=== PATIENT | female | born 1995 | race Caucasian/White ===

== ENCOUNTER → 2021-08-22 14:27 | Outpatient (CLI) | payer OTHER, SELFPAY ==
[2021-08-22 15:22] LABS: Absolute Lymphocyte Count 2.41 X10^3/uL (0.83-4.51); Basophil# 0.04 X10^3/uL; Basophil% 0.4 % (0-1); Eosinophil# 0.07 X10^3/uL; Eosinophils% 0.8 % (0-5); Hemoglobin 13.9 g/dL (12.0-15.0); Lymphocyte # 2.41 X10^3/ul (0.83-4.51); Lymphocyte % 26.1 % (19-41); Mean Corp Hgb Conc 33.9 g/dL (32-36); Mean Corpuscular Hgb 30.5 pg (27.0-32.0); Mean Corpuscular Volume 89.9 fL (81-99); Mean Platelet Vol. 9.1 fl (6.2-12.0); Monocyte# 0.67 X10^3/uL; Monocyte% 7.3 % (0-10); NRBC Flagged by Analyzer 0 % (0-5); Neutrophil # 6.02 X10^3/uL (2.7-7.7); Neutrophil % 65.1 % (47-70); Platelet Count 308 K/mm3 (150-450); RBC Distribution Width CV 12.1 % (11.6-14.6); RBC Distribution Width SD 39.2 fl (35.1-43.9); Red Blood Count 4.56 M/mm3 (4.2-5.4); White Blood Count 9.2 K/mm3 (4.4-11.0)
[2021-08-25 09:30] LABS: HIV - WCH Non-Reactive (Nonreactive); Hepatitis B Surface Antigen Non-Reactive (Nonreactive); Hepatitis C Antibody Non-Reactive (Nonreactive); Syphilis Antibodies Non-reactive
[2021-08-26 00:07] LABS: Chlamydia By Nucleic Acid AMP Negative (Negative)
[2021-08-26 11:21] LABS: Gonococcus By Nucleic Acid AMP Negative (Negative)
[2021-08-28 21:45] LABS: HPV Reflexed? NOT INDICATED
== END ==
PROVIDERS: Visit Provider Obstetrics & Gynecology
DX: Z34.81 Encounter for supervision of other normal pregnancy, first trimester (principal); Z12.4 Encounter for screening for malignant neoplasm of cervix; Z11.3 Encounter for screening for infections with a predominantly sexual mode of transmission
CPT/HCPCS: 36415; 85025; 86703; 86762; 86780; 86803; 87086; 87088; 87340; 87491; 87591; 88175; G0145

== ENCOUNTER 2022-01-02 12:48 | Outpatient (CLI) | payer OTHER, SELFPAY ==
[2022-01-02 13:14] LABS: Hematocrit 35.8 % (37-47); Hemoglobin 12.5 g/dL (12.0-15.0); Mean Corp Hgb Conc 34.9 g/dL (32-36); Mean Corpuscular Hgb 32.3 pg (27.0-32.0); Mean Corpuscular Volume 92.5 fL (81-99); Mean Platelet Vol. 9.7 fl (6.2-12.0); Platelet Count 219 K/mm3 (150-450); RBC Distribution Width CV 12.6 % (11.6-14.6); RBC Distribution Width SD 42.1 fl (35.1-43.9); Red Blood Count 3.87 M/mm3 (4.2-5.4); White Blood Count 11.1 K/mm3 (4.4-11.0)
[2022-01-02 13:34] LABS: Glucose Challenge Gest 1H 50g 193 mg/dL (70-140)
== END 2022-01-02 23:59 | disposition home or self-care (01) ==
LOC: WOBLAB 12:49
PROVIDERS: Visit Provider Obstetrics & Gynecology
DX: Z34.82 Encounter for supervision of other normal pregnancy, second trimester (principal)
CPT/HCPCS: 36415; 82950; 85027; 86850

== ENCOUNTER 2022-01-09 11:17 | Outpatient (CLI) | payer OTHER, MEDICAID, SELFPAY ==
[2022-01-09 13:04] LABS: Glucose GTT-Gestation. Fasting 81 mg/dL (<105)
== END 2022-01-09 23:59 | disposition home or self-care (01) ==
LOC: WOBLAB 11:19
PROVIDERS: Visit Provider Obstetrics & Gynecology
DX: Z34.82 Encounter for supervision of other normal pregnancy, second trimester (principal)
CPT/HCPCS: 36415; 82951; 82952

== ENCOUNTER 2022-01-15 08:44 | Outpatient (CLI) | payer OTHER, MEDICAID, SELFPAY ==
[2022-01-15 09:32] LABS: Glucose GTT-Gestation. Fasting 89 mg/dL (<105)
[2022-01-15 11:33] LABS: Glucose GTT-Gestational 1 Hr 226 mg/dL (<190)
[2022-01-15 11:33] LABS: Glucose GTT-Gestational 2 Hr 250 mg/dL (<165)
[2022-01-15 13:26] LABS: Glucose GTT-Gestational 3 Hr 164 L (<145)
== END 2022-01-15 23:59 | disposition home or self-care (01) ==
LOC: WOBLAB 08:46
PROVIDERS: Visit Provider Obstetrics & Gynecology
DX: Z34.82 Encounter for supervision of other normal pregnancy, second trimester (principal)
CPT/HCPCS: 36415; 82951; 82952

== ENCOUNTER 2022-02-03 08:30 | Outpatient (CLI) | payer OTHER, MEDICAID, SELFPAY ==
[2022-02-03 08:53] VITALS: PULSE 123; O2SAT 98
[2022-02-03 08:58] VITALS: PULSE 118; O2SAT 97
[2022-02-03 09:03] VITALS: BP 108/66; PULSE 117; TEMP 37.1
[2022-02-03 09:05] VITALS: BMI 41.9
--- NOTE | 2022-02-03 18:59 | OB.TRI.NOTE ---
HPI - General HPI Narrative ZACH CONTE, is a 26 F who presents with decreased movement PFSH PFSH Home Medications Vitamin 1 tab PO/SL DAILY 02/03/22 [History Last Taken 12/09/21 08:00] Allergy/AdvReac Type Severity Reaction Status Date / Time No Known Allergies Allergy Verified 02/03/22 09:14 NST FHR Rate Baby A Baseline: 130 Variability:: Moderate Accelerations:: 15 x 15 and 10 x 10 Decelerations:: None Uterine Activity:: quiet Assessment & Plan (1) : PLAN: Patient with decreased movement. NST reactive. Reassuring. Okay to discharge home and follow-up schedule appointments
== END 2022-02-03 10:50 | disposition home or self-care (01) ==
LOC: WPOUT 08:45 → WP 08:46
PROVIDERS: PCP Family Medicine; Referring Provider Obstetrics & Gynecology; Visit Provider Obstetrics & Gynecology
DX: O36.8190 Decreased fetal movements, unspecified trimester, not applicable or unspecified (principal); Z3A.00 Weeks of gestation of pregnancy not specified
CPT/HCPCS: 59025; 59050; 99218; G0378

== ENCOUNTER → 2022-02-20 | Outpatient (CLI) | payer OTHER, MEDICAID, SELFPAY ==
[2022-02-20 11:10] LABS: ALB/GLOB Ratio 0.6 RATIO (0.9-2.4); AST(SGOT) 67 U/L (15-37); Alanine Aminotransfer ALT/SGPT 32 U/L (13-56); Albumin, Serum 2.2 g/dL (3.2-5.0); Alkaline Phosphatase 188 U/L (45-117); Anion Gap 8 (5-15); BUN 9 mg/dL (7-18); BUN/Creat Ratio 12.6 RATIO (10-20); Chloride 110 mmol/L (98-107); Creatinine, Serum 0.72 mg/dL (0.55-1.02); EST Glomerular Filtration Rate 105 mL/min (>60); Est Glom Filt Rate - Afr Amer 127 mL/min (>60); Globulin 3.9 g/dL (2.2-4.2); Glucose 74 mg/dL (74-106); Potassium 4.1 mmol/L (3.5-5.1); Protein, Total 6.1 g/dL (6.4-8.2); Sodium Level 139 mmol/L (136-145)
[2022-02-20 11:19] LABS: Hematocrit 30.8 % (37-47); Hemoglobin 10.3 g/dL (12.0-15.0); Mean Corp Hgb Conc 33.4 g/dL (32-36); Mean Corpuscular Hgb 31.3 pg (27.0-32.0); Mean Corpuscular Volume 93.6 fL (81-99); Mean Platelet Vol. 10.5 fl (6.2-12.0); Platelet Count 193 K/mm3 (150-450); RBC Distribution Width CV 12.9 % (11.6-14.6); RBC Distribution Width SD 43.4 fl (35.1-43.9); Red Blood Count 3.29 M/mm3 (4.2-5.4); White Blood Count 7.8 K/mm3 (4.4-11.0)
== END | disposition home or self-care (01) ==
PROVIDERS: PCP Family Medicine; Visit Provider Obstetrics & Gynecology
DX: Z34.83 Encounter for supervision of other normal pregnancy, third trimester (principal)
CPT/HCPCS: 36415; 80053; 85027; 86850

== ENCOUNTER → 2022-03-03 | Outpatient (CLI) | payer OTHER, MEDICAID, SELFPAY ==
[2022-03-03 14:53] LABS: Hematocrit 29.6 % (37-47); Hemoglobin 9.9 g/dL (12.0-15.0); Mean Corp Hgb Conc 33.4 g/dL (32-36); Mean Corpuscular Hgb 31.2 pg (27.0-32.0); Mean Corpuscular Volume 93.4 fL (81-99); Mean Platelet Vol. 10.3 fl (6.2-12.0); Platelet Count 217 K/mm3 (150-450); RBC Distribution Width CV 13.1 % (11.6-14.6); Red Blood Count 3.17 M/mm3 (4.2-5.4); White Blood Count 6.1 K/mm3 (4.4-11.0)
[2022-03-03 15:22] LABS: ALB/GLOB Ratio 0.6 RATIO (0.9-2.4); AST(SGOT) 64 U/L (15-37); Alanine Aminotransfer ALT/SGPT 30 U/L (13-56); Albumin, Serum 2.4 g/dL (3.2-5.0); Alkaline Phosphatase 246 U/L (45-117); Anion Gap 8 (5-15); BUN 9 mg/dL (7-18); BUN/Creat Ratio 10.3 RATIO (10-20); Chloride 108 mmol/L (98-107); Creatinine, Serum 0.88 mg/dL (0.55-1.02); EST Glomerular Filtration Rate 83 mL/min (>60); Est Glom Filt Rate - Afr Amer 101 mL/min (>60); Globulin 3.9 g/dL (2.2-4.2); Glucose 105 mg/dL (74-106); Protein, Total 6.3 g/dL (6.4-8.2); Sodium Level 138 mmol/L (136-145)
== END | disposition home or self-care (01) ==
PROVIDERS: PCP Family Medicine; Visit Provider Obstetrics & Gynecology
DX: L29.9 Pruritus, unspecified (principal)
CPT/HCPCS: 36415; 80053; 85027

== ENCOUNTER → 2022-03-13 | Outpatient (CLI) | payer OTHER, MEDICAID, SELFPAY ==
[2022-03-13 16:05] LABS: ALB/GLOB Ratio 0.6 RATIO (0.9-2.4); AST(SGOT) 54 U/L (15-37); Alanine Aminotransfer ALT/SGPT 19 U/L (13-56); Albumin, Serum 2.4 g/dL (3.2-5.0); Alkaline Phosphatase 240 U/L (45-117); Anion Gap 6 (5-15); BUN 10 mg/dL (7-18); Chloride 110 mmol/L (98-107); Creatinine, Serum 0.91 mg/dL (0.55-1.02); EST Glomerular Filtration Rate 80 mL/min (>60); Est Glom Filt Rate - Afr Amer 96 mL/min (>60); Globulin 4.1 g/dL (2.2-4.2); Glucose 110 mg/dL (74-106); Protein, Total 6.5 g/dL (6.4-8.2); Sodium Level 138 mmol/L (136-145)
== END | disposition home or self-care (01) ==
LOC: WOBLAB 15:25
PROVIDERS: PCP Family Medicine; Visit Provider Student in an Organized Health Care Education/Training Program
DX: Z34.83 Encounter for supervision of other normal pregnancy, third trimester (principal); Z36.85 Encounter for antenatal screening for Streptococcus B
CPT/HCPCS: 36415; 80053; 87081

== ENCOUNTER 2022-03-18 18:55 | Inpatient (IN) | payer OTHER, MEDICAID, SELFPAY ==
[2022-03-18 19:16] VITALS: BMI 42.6
[2022-03-18 19:47] VITALS: TEMP 36.6
[2022-03-18 19:48] VITALS: BP 129/61; PULSE 100; PULSE 101; O2SAT 100
[2022-03-18] MEDS: Betamethasone/Betamethasone 30 MG/5 ML Vial 12 MG IM (19:55)
[2022-03-18] MEDS: Lactated Ringers 1,000 ML 50 ML IV (19:58)
[2022-03-18 20:05] LABS: Absolute Lymphocyte Count 2.13 X10^3/uL (0.83-4.51); Absolute Neutrophil Count 4.1 X10^3/uL (2.0-7.7); Basophil# 0.04 X10^3/uL; Basophil% 0.6 % (0-1); Eosinophil# 0.32 X10^3/uL; Eosinophils% 4.4 % (0-5); Hematocrit 29.7 % (37-47); Hemoglobin 9.9 g/dL (12.0-15.0); Lymphocyte # 2.13 X10^3/ul (0.83-4.51); Lymphocyte % 29.3 % (19-41); Mean Corp Hgb Conc 33.3 g/dL (32-36); Mean Corpuscular Hgb 30.7 pg (27.0-32.0); Mean Corpuscular Volume 92.2 fL (81-99); Mean Platelet Vol. 10.8 fl (6.2-12.0); Monocyte# 0.61 X10^3/uL; Monocyte% 8.4 % (0-10); NRBC Flagged by Analyzer 0.3 % (0-5); Neutrophil % 56.5 % (47-70); Platelet Count 227 K/mm3 (150-450); RBC Distribution Width SD 42.8 fl (35.1-43.9); Red Blood Count 3.22 M/mm3 (4.2-5.4); White Blood Count 7.3 K/mm3 (4.4-11.0)
[2022-03-18] MEDS: miSOPROStol 25 MCG TABLET VAGINAL (20:16)
[2022-03-18 23:02] VITALS: TEMP 36.4
[2022-03-18 23:03] VITALS: BP 118/56; PULSE 98
[2022-03-18 23:21] LABS: Bedside Glucose 96 mg/dL (74-106)
[2022-03-19] VITALS (46 sets, daily range): BP systolic 88–176; BP diastolic 51–77; PULSE 84–120; TEMP 36.4–37.2; O2SAT 85–100
[2022-03-19] MEDS: miSOPROStol 25 MCG TABLET VAGINAL ×5 (00:13→16:15)
[2022-03-19 00:26] LABS: Bedside Glucose 94 mg/dL (74-106)
[2022-03-19 04:21] LABS: Bedside Glucose 84 mg/dL (74-106)
--- NOTE | 2022-03-19 06:47 | HP.PCM_ITS ---
History and Physical Date of Admission: 03/18/22 ACOG ANTEPARTUM RECORD - HISTORY AND PHYSICAL (03/19/2022) Name: ZACH OCAMPO History of this : This is a 26 year old [id number] presents at 36 wks + 0 days gestation for induction for cholestasiis of . 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 : 1995 Age: 26 Address: [address] [place] [address] Phone: [phone]) [phone] Insurance Carrier: [employer] [id number] Emergency Contact: PRIYANKAMARYJO OCAMPO [phone] ...................................................................... Final MARGO: 04/15/22 By Ultrasound: PARITY: (G-Total Pregnancies P-Fullterm,Premature,Induced AB,Spont AB, Ectopics, Multiple,Living) MARGO CONFIRMATION: By LMP: 07/09/21 Final MARGO: 04/15/22 OB PROBLEM LIST: Cholestasis , on Tx Declines genetic and carrier screening GDMA1 Pt has a paternal uncle with Down Syndrome Pt's mom and brother born with small ductus arteriosis, mom had repair at age 3 Rh negative ALLERGIES: NKDA MEDICATIONS: doxylamine succinate 25 mg tablet 1 PO QD ondansetron HCl 4 mg tablet 1 PO every four to six hours PRN nausea 28 mg-800 mcg tablet One pill by mouth once a day pyridoxine (vitamin B6) 25 mg tablet 1 PO QD ursodiol 300 mg capsule 1 PO TID SOCIAL HISTORY: Smoking - Never Alcohol Use - None Diet - high sodium Lifestyle - Exercise - regular 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 Illicit Drug Use - None Sexual Activity - single sexual partner Residence - lives with Place of - [place], [place] Hours Worked - 40 hours per week Spouse-Sig Other Name - Dave Spouse-Sig Other Occupation - Will be employed a [employer] DELIV[employer] HISTORY DEL DATE GEST LAB WT LB WT OZ TYPE ANES LABOR TX ANTEPARTUM FLOW CHART VISIT GE RTC FU F F OR U U DATE WK MD WKS HT PN HR M SS BP ED WT OR GL D EF ST __ ____ ___ __ __ ___ __ __ __ ___ __ __ __ ___ __ 03 Mar 35 CM 1 36 V + + 124/72 sl 265 tr ne ft February JM 1 33 V on + 134/76 2+ 264 - - February JM 2 32 V + + 132/84 0 264 - - Jan 02 JM 4 - - on + 134/84 sl 246 - - Dec 01 JM 4 - - on + 112/66 0 236 - - Oct 26 JM 4 - - + O 122/76 0 231 - - 23 Dec 12 CJ 4 - - on 126/78 229 - - Aug 17 JC 4 - - on US 110/68 0 228 - - ANTEPARTUM NOTE(S): Mar 13 2022: Declines LARC, GBS today Mar 03 2022: Feb 20 2022: Jan 02 2022: Dec 05 2021: Oct 31 2021: frequent headaches Oct 02 2021: Mild nausea, can eat and drink Sep 01 2021: Sono Today, Nausea Better COMPREHENSIVE ANTEPARTUM NOTE(S): Mar 13 2022: 35/2w. Cholestasis - pruritis improved with ursodiol. Repeat CMP due to elevated AST. BPP 8, AGUILAR wnl. GDMA1 - stable. Plan induction of labor 36/0w on March 18 PM cytotec. BPP Mon or Tu next week. CM Mar 03 2022: Zach is 33w6d here for PNV good FM 2+edema. State she is still itching. No other concerns. BR Mar 03 2022: 33wk, intial bile acids wnl. LFTs with AST 67 and ALT wnl. Anemia for iron. Still with itching of palms and soles. For repeat labs today, pending labs will consider dx and tx for cholestasis. BPP today 05/18 AGUILAR 3.5 but DVP 2.9 still wnl. Scheduled for twice weekly BPP's. Educated on results and discussed delivery at 36-37wks is likely. GDMA1, fastings with isolated elavated. Discussed either need f Feb 20 2022: Ingris is 32w2d here for PNV good FM no edema C/O tender skin on her belly. Rhogam today Feb 20 2022: 32 weeks, newly diagnosed GDM A1 overall blood sugars within normal limits. Will monitor fasting blood sugars. Discussed possible need for treatment. For growth ultrasound next visit then follow-up with PCP. Consider weekly testing. Itching of palms and soles. Blood pressure within normal today. Discussed antihistamines. For total bile acids and labs today. RhoGAM today. JM Jan 02 2022: Zach is 25w2d here for PNV good FM slight edema. C/O some headaches. BR Jan 02 2022: 25 weeks, follow-up ultrasound with complete heart views. Within normal limits. Failed 1 hour GTT, scheduled for 3-hour GTT. CJ Dec 05 2021: Zach is 21w2d here for PNV. Good FM no edema. No concerns or complaints today. Glucola given today to complete at next visit. BR Dec 05 2021: 21 weeks, anatomy ultrasound with limited heart views otherwise within normal limits. With family history offered echo, patient declined at this time. We will repeat ultrasound at next visit for heart views. If no heart views noted next visit will schedule for [facility]'s echo. 1 hour GTT next visit. CJ Oct 31 2021: Zach is here for a pnv w/ SO at 16/2. Denies n/v, cramping and spotting. Frequent ROSA's. No further issues/ concerns expressed, overall doing well. CHRISTA Oct 31 2021: 16wk, headaches outside and inside . Discussed tylenol and decreased screen time. CJ Oct 02 2021: 12 weeks, no complaints. CJ Oct 02 2021: Zach is here for her NOB visit, she is a 25 year old with an MARGO of 04/15/2022, current GA is 12 w 1 d. Zach is accompanied by her spouse, Dave, he seems happy and supportive. They voice excitement about the . She plans to deliver at [facility], she is unsure about having an epidural, but is not opposed to one if she needs it, and she will breastfeed. Office childbirth and either offi Sep 01 2021: 7wk, with FINAL MARGO: 04/15/22 by LMP c/w 7wk u/s. PNP wnl, Rh neg for rhogam. pt declines genetic and carrier screening. CJ Aug 22 2021: Zach is here w/ her SO for a missed menses appt. 25 y.o. . LMP 07/09/21. Positive UPT in office. MARGO 04/15/2022, pt approx 7 wks and 2 day s. Mild nausea present, discussed ways to relieve w/o medication. Denies spotting/ bleeding/ cramping at this time. Reviewed medication and allergies. Pt is a nonsmoker. Reviewed educational info. Pap and cultures today, consent signed. Pt has sodium defic REVIEW OF SYSTEMS: GENERAL - Denies fever, or chills SKIN - Denies rash, new skin lesions, or change in moles EYES - Denies blurred vision, or change in visual acuity EARS - Denies ear pain, or difficulty hearing NOSE - Denies nasal congestion, discharge, or bleeding MOUTH - Denies sore throat, or difficulty swallowing NECK - Denies pain or swelling RESPIRATORY - Denies shortness of breath, cough, wheezing CARDIOVASCULAR - Denies palpitations, chest pain, orthopnea, PND, peripheral edema, syncope or claudication GASTROINTESTINAL - Denies nausea, vomiting, diarrhea, constipation, Denies abdominal pain, melena and or bright red blood GENITOURINARY - Denies dysuria, frequency of urination, urgency, or hesitancy MUSCULOSKELETAL - Denies joint or muscle pain, or back pain NEUROLOGICAL - Denies localized numbness, weakness, or tingling PSYCHIATRIC - Denies depression, anxiety, substance abuse or suicide attempts ENDOCRINE - Denies heat or cold intolerance, weight loss or gain, increasing thirst HEMATO-IMMUNOLOGIC - Denies easy bruising, bleeding, oral ulcerations or recurrent infections GENETICS SCREENING: Age 35+ years: No Thalassemia: No Neural Tube Defect: No Down Syndrome: No MADELEINE-SACHS: No Sickle Cell Disease: No Hemophilia: No Musc. Dystrophy: No Cystic Fibrosis: No-declines screening [place] Chorea: No Mental Retardation: No Fragile X: No Other genetic: Mom/brother heart defect Other defects: Mom/brother heart defect SABs/still births: No Drugs since LMP: No INFECTION HISTORY: High risk AIDS: No High risk Hepatitis: No Exposed to TB: No Exposed to Herpes: No Rash/viral illness since LMP: No History of STD: No MENSTRUAL HISTORY: *Menses Amount/Duration: 3-4 DAYSMenses Regularity: RegularFrequency: monthlyMenarche (Age Onset): 13* PAST SUMMARY: PARITY: 1. Total Pregnancies............ 1 2. Full Term Pregnancies........ 0 3. Premature.................... 0 4. Abortions - Induced.......... 0 5. Abortions - Spontaneous...... 0 6. Ectopics..................... 0 7. Multiple Births.............. 0 8. Living Children.............. 0 PHYSICAL EXAMINATION General Appearence: 26 yo female in no acute distress Vital Signs: AF, VSS Heart: RRR without rubs or gallops Lungs: CTA x 2 Breasts: deferred Abdomen: gravid Pelvis: Cervix: Presentation: cephalic Station: Fetus: Size: AGA Movement: present Heart: present LAB TEST(S) ORDERED SINCE:07/19/21 08/28/2021 PAP I-G W/RFX HRHPV-APTIMA 08/26/2021 RUBELLA AB IGG 08/26/2021 CHLAMYDIA/GC KATERYNA APTIMA 08/25/2021 L509.8000 08/25/2021 HIV - [facility] 08/25/2021 HEPATITIS C ANTIBODY 08/25/2021 HEPATITIS B SURFACE ANTIGEN 08/24/2021 URINE CULTURE 08/22/2021 T AND S-NO CHARGE W/PNP 08/22/2021 CBC W/DIFF, AUTOMATED 03/19/2022 BEDSIDE GLUCOSE 03/18/2022 TYPE AND SCREEN 03/18/2022 COVID 19 AG RAPID (RN COLLECT) 03/18/2022 CBC W/DIFF, AUTOMATED 03/18/2022 BEDSIDE GLUCOSE 03/18/2022 ANTIBODY SCREEN, INDIRECT 03/16/2022 RULE OUT BETA STREP (GRP. B) 03/13/2022 COMPREHENSIVE METABOLIC PROFIL 03/06/2022 MISCELLANEOUS LAB PROCEDURE 03/03/2022 COMPREHENSIVE METABOLIC PROFIL 03/03/2022 CBC-COMPLETE BLOOD CNT NO DIFF 02/23/2022 MISCELLANEOUS LAB PROCEDURE 02/20/2022 COMPREHENSIVE METABOLIC PROFIL 02/20/2022 CBC-COMPLETE BLOOD CNT NO DIFF 02/20/2022 [id number] 01/15/2022 GESTATIONAL GTT 3HR 100G 01/09/2022 GESTATIONAL GTT 3HR 100G 01/02/2022 GLUCOSE CHALLENGE GEST 1H 50G 01/02/2022 CBC-COMPLETE BLOOD CNT NO DIFF 01/02/2022 [id number] == ==== Order Observation Description Value Ref_Range A* Site == ==== BEDSIDE GLUCOSE NOTE RAM BEDSIDE GLUCOSE FINGERSTICK GLU 84 mg/dL 74-106 POCL MANAGEMENT OF PATIENT CARE PER NURSING PROTOCOL BEDSIDE GLUCOSE NOTE RAM BEDSIDE GLUCOSE FINGERSTICK GLU 94 mg/dL 74-106 POCL MANAGEMENT OF PATIENT CARE PER NURSING PROTOCOL BEDSIDE GLUCOSE NOTE RAM BEDSIDE GLUCOSE FINGERSTICK GLU 96 mg/dL 74-106 POCL MANAGEMENT OF PATIENT CARE PER NURSING PROTOCOL [facility]~[address] [place], [address]~ ANTIBODY SCREEN ANTIBODY SCREEN NEGATIVE ML Labor [facility]~[address] [place], [address]~ TYPE AND SCRE AB SCREEN GEL TNP ML COVID 19 AG RAP NOTE RAM CBC W/DIFF, AUT NOTE RAM CBC W/DIFF, AUT WBC 7.3 K/mm3 4.4-11.0 ML CBC W/DIFF, AUT RBC 3.22 M/mm3 4.2-5.4 L ML CBC W/DIFF, AUT HGB 9.9 g/dL 12.0-15.0 L ML CBC W/DIFF, AUT HCT 29.7 37-47 L ML CBC W/DIFF, AUT MCV 92.2 fL 81-99 ML CBC W/DIFF, AUT MCH 30.7 pg 27.0-32.0 ML CBC W/DIFF, AUT MCHC 33.3 g/dL 32-36 ML CBC W/DIFF, AUT RDW CV 13.0 11.6-14.6 ML CBC W/DIFF, AUT RDW SD 42.8 fl 35.1-43.9 ML CBC W/DIFF, AUT PLT 227 K/mm3 150-450 ML CBC W/DIFF, AUT MPV 10.8 fl 6.2-12.0 ML CBC W/DIFF, AUT NEUT% 56.5 47-70 ML CBC W/DIFF, AUT LY% 29.3 19-41 ML CBC W/DIFF, AUT MONO% 8.4 0-10 ML CBC W/DIFF, AUT EO% 4.4 0-5 ML CBC W/DIFF, AUT BASO% 0.6 0-1 ML CBC W/DIFF, AUT IG% 0.800 0.0-0.9 ML IG% - Immature Granulocytes (promyelocytes, myelocytes and metamyelocytes) > 1% indicates that a LEFT SHIFT is Present. CBC W/DIFF, AUT ABSOLUTE NEUT 4.1 X10 3/uL 2.0-7.7 ML CBC W/DIFF, AUT ABSOLUTE LYMPH 2.13 X10 3/uL 0.83-4.51 ML CBC W/DIFF, AUT NUCLEATED RBC 0.3 0-5 ML RULE OUT BETA S NOTE RAM COMPREHENSIVE M NOTE RAM COMPREHENSIVE M GLU 110 mg/dL 74-106 H ML Fasting Glucose result from 100 to 125 mg/dL suggests IMPAIRED HOMEOSTASIS per A.D.A. criteria. COMPREHENSIVE M BUN 10 mg/dL 7-18 ML COMPREHENSIVE M CREAT,SERUM 0.91 mg/dL 0.55-1.02 ML The validity of the calculated GFR GFRAA in patients over 70 years has not been determined. Clinical correlation is essential. COMPREHENSIVE M EST GFR 80 mL/min >60 ML Non- GFR Calc COMPREHENSIVE M EST GFR - AA 96 mL/min >60 ML GFR Calc COMPREHENSIVE M BUN/CRE 11.0 RATIO 10-20 ML COMPREHENSIVE M T PROT 6.5 g/dL 6.4-8.2 ML COMPREHENSIVE M ALB 2.4 g/dL 3.2-5.0 L ML COMPREHENSIVE M GLOB 4.1 g/dL 2.2-4.2 ML COMPREHENSIVE M A/G 0.6 RATIO 0.9-2.4 L ML COMPREHENSIVE M CA,TOTAL 9.0 mg/dL 8.5-10.1 ML COMPREHENSIVE M AST 54 U/L 15-37 H ML COMPREHENSIVE M ALK P 240 U/L 45-117 H ML COMPREHENSIVE M ALT 19 U/L 13-56 ML COMPREHENSIVE M T BILI 0.30 mg/dL 0.20-1.00 ML For patients on eltrombopag therapy, use of Dimension [place] TBIL is not recommended. COMPREHENSIVE M NA 138 mmol/L 136-145 ML COMPREHENSIVE M POTASSIUM 4.0 mmol/L 3.5-5.1 ML COMPREHENSIVE M CL 110 mmol/L 98-107 H ML COMPREHENSIVE M CO2 22.0 mmol/L 21.0-32.0 ML COMPREHENSIVE M GAP 6 5-15 ML MISCELLANEOUS L NOTE RAM MISCELLANEOUS L MISC LAB TEST ML TEST RESULT LIMITS Bile Acids 9.1 umol/L 0.0-10.0 TESTING PERFORMED AT [facility]. ORIGINAL REPORT ON FILE IN LAB CONTAINS ADDITIONAL TEST SITE INFORMATION. COMPREHENSIVE M NOTE RAM COMPREHENSIVE M GLU 105 mg/dL 74-106 ML Fasting Glucose result from 100 to 125 mg/dL suggests IMPAIRED HOMEOSTASIS per A.D.A. criteria. COMPREHENSIVE M BUN 9 mg/dL 7-18 ML COMPREHENSIVE M CREAT,SERUM 0.88 mg/dL 0.55-1.02 ML The validity of the calculated GFR GFRAA in patients over 70 years has not been determined. Clinical correlation is essential. COMPREHENSIVE M EST GFR 83 mL/min >60 ML Non- GFR Calc COMPREHENSIVE M EST GFR - AA 101 mL/min >60 ML GFR Calc COMPREHENSIVE M BUN/CRE 10.3 RATIO 10-20 ML COMPREHENSIVE M T PROT 6.3 g/dL 6.4-8.2 L ML COMPREHENSIVE M ALB 2.4 g/dL 3.2-5.0 L ML COMPREHENSIVE M GLOB 3.9 g/dL 2.2-4.2 ML COMPREHENSIVE M A/G 0.6 RATIO 0.9-2.4 L ML COMPREHENSIVE M CA,TOTAL 9.0 mg/dL 8.5-10.1 ML COMPREHENSIVE M AST 64 U/L 15-37 H ML COMPREHENSIVE M ALK P 246 U/L 45-117 H ML COMPREHENSIVE M ALT 30 U/L 13-56 ML COMPREHENSIVE M T BILI 0.30 mg/dL 0.20-1.00 ML For patients on eltrombopag therapy, use of Dimension [place] TBIL is not recommended. COMPREHENSIVE M NA 138 mmol/L 136-145 ML COMPREHENSIVE M POTASSIUM 4.0 mmol/L 3.5-5.1 ML COMPREHENSIVE M CL 108 mmol/L 98-107 H ML COMPREHENSIVE M CO2 22.0 mmol/L 21.0-32.0 ML COMPREHENSIVE M GAP 8 5-15 ML CBC-COMPLETE BL NOTE RAM CBC-COMPLETE BL WBC 6.1 K/mm3 4.4-11.0 ML CBC-COMPLETE BL RBC 3.17 M/mm3 4.2-5.4 L ML CBC-COMPLETE BL HGB 9.9 g/dL 12.0-15.0 L ML CBC-COMPLETE BL HCT 29.6 37-47 L ML CBC-COMPLETE BL MCV 93.4 fL 81-99 ML CBC-COMPLETE BL MCH 31.2 pg 27.0-32.0 ML CBC-COMPLETE BL MCHC 33.4 g/dL 32-36 ML CBC-COMPLETE BL RDW CV 13.1 11.6-14.6 ML CBC-COMPLETE BL RDW SD 44.0 fl 35.1-43.9 H ML CBC-COMPLETE BL PLT 217 K/mm3 150-450 ML CBC-COMPLETE BL MPV 10.3 fl 6.2-12.0 ML MISCELLANEOUS L NOTE RAM MISCELLANEOUS L MISC LAB TEST ML TEST RESULT UNITS REF INTERVAL BILE ACIDS 5.2 umol/L 0.0 - 10.0 TESTING PERFORMED AT [facility]. ORIGINAL REPORT ON FILE IN LAB CONTAINS ADDITIONAL TEST SITE INFORMATION. [facility]~[address] [place], [address]~ [id number] AB SCREEN GEL NEGATIVE ML CBC-COMPLETE BL NOTE RAM CBC-COMPLETE BL WBC 7.8 K/mm3 4.4-11.0 ML CBC-COMPLETE BL RBC 3.29 M/mm3 4.2-5.4 L ML CBC-COMPLETE BL HGB 10.3 g/dL 12.0-15.0 L ML CBC-COMPLETE BL HCT 30.8 37-47 L ML CBC-COMPLETE BL MCV 93.6 fL 81-99 ML CBC-COMPLETE BL MCH 31.3 pg 27.0-32.0 ML CBC-COMPLETE BL MCHC 33.4 g/dL 32-36 ML CBC-COMPLETE BL RDW CV 12.9 11.6-14.6 ML CBC-COMPLETE BL RDW SD 43.4 fl 35.1-43.9 ML CBC-COMPLETE BL PLT 193 K/mm3 150-450 ML CBC-COMPLETE BL MPV 10.5 fl 6.2-12.0 ML COMPREHENSIVE M NOTE RAM COMPREHENSIVE M GLU 74 mg/dL 74-106 ML COMPREHENSIVE M BUN 9 mg/dL 7-18 ML COMPREHENSIVE M CREAT,SERUM 0.72 mg/dL 0.55-1.02 ML The validity of the calculated GFR GFRAA in patients over 70 years has not been determined. Clinical correlation is essential. COMPREHENSIVE M EST GFR 105 mL/min >60 ML Non- GFR Calc COMPREHENSIVE M EST GFR - AA 127 mL/min >60 ML GFR Calc COMPREHENSIVE M BUN/CRE 12.6 RATIO 10-20 ML COMPREHENSIVE M T PROT 6.1 g/dL 6.4-8.2 L ML COMPREHENSIVE M ALB 2.2 g/dL 3.2-5.0 L ML COMPREHENSIVE M GLOB 3.9 g/dL 2.2-4.2 ML COMPREHENSIVE M A/G 0.6 RATIO 0.9-2.4 L ML COMPREHENSIVE M CA,TOTAL 9.0 mg/dL 8.5-10.1 ML COMPREHENSIVE M AST 67 U/L 15-37 H ML COMPREHENSIVE M ALK P 188 U/L 45-117 H ML COMPREHENSIVE M ALT 32 U/L 13-56 ML COMPREHENSIVE M T BILI 0.40 mg/dL 0.20-1.00 ML For patients on eltrombopag therapy, use of Dimension [place] TBIL is not recommended. COMPREHENSIVE M NA 139 mmol/L 136-145 ML COMPREHENSIVE M POTASSIUM 4.1 mmol/L 3.5-5.1 ML COMPREHENSIVE M CL 110 mmol/L 98-107 H ML COMPREHENSIVE M CO2 21.0 mmol/L 21.0-32.0 ML COMPREHENSIVE M GAP 8 5-15 ML GESTATIONAL GTT NOTE ARM GESTATIONAL GTT 3HR GTT- GEST. MG/DL H ML FASTING 89 Col: 01/15/22 0854 GLUCOSE TOLERANCE TEST FOR Reference Interval GESTATIONAL DIABETES Fasting <105 mg/dL 1 hour <190 mg/dl 2 hour <165 mg/dl 3 hour <145 mg/dl 1 HR GLU 226 H Col: 01/15/22 0954 2 HR GLU 250 H Col: 01/15/22 1054 3 HR GLU 164 H Col: 01/15/22 1154 GESTATIONAL GTT NOTE RAM GESTATIONAL GTT 3HR GTT- GEST. MG/DL ML FASTING 81 Col: 01/09/22 1124 GLUCOSE TOLERANCE TEST FOR Reference Interval GESTATIONAL DIABETES Fasting <105 mg/dL 1 hour <190 mg/dl 2 hour <165 mg/dl 3 hour <145 mg/dl 1 HR GLU Col: 01/09/22 1224 2 HR GLU Col: 01/09/22 1324 3 HR GLU Col: 01/09/22 1424 [facility]~[address] [place], [address]~ [id number] AB SCREEN GEL NEGATIVE ML GLUCOSE CHALLEN NOTE RAM GLUCOSE CHALLEN GLU GEST 50G 1H 193 mg/dL 70-140 H ML CBC-COMPLETE BL NOTE RAM CBC-COMPLETE BL WBC 11.1 K/mm3 4.4-11.0 H ML CBC-COMPLETE BL RBC 3.87 M/mm3 4.2-5.4 L ML CBC-COMPLETE BL HGB 12.5 g/dL 12.0-15.0 ML CBC-COMPLETE BL HCT 35.8 37-47 L ML CBC-COMPLETE BL MCV 92.5 fL 81-99 ML CBC-COMPLETE BL MCH 32.3 pg 27.0-32.0 H ML CBC-COMPLETE BL MCHC 34.9 g/dL 32-36 ML CBC-COMPLETE BL RDW CV 12.6 11.6-14.6 ML CBC-COMPLETE BL RDW SD 42.1 fl 35.1-43.9 ML CBC-COMPLETE BL PLT 219 K/mm3 150-450 ML CBC-COMPLETE BL MPV 9.7 fl 6.2-12.0 ML RUBELLA AB IGG NOTE RAM RUBELLA AB IGG RUBELLA AB, IGG 1.36 index Immune >0.99 LCI Non-immune <0.90 Equivocal 0.90 - 0.99 Immune >0.99 HEPATITIS C ANT NOTE RAM HEPATITIS C ANT HEPATITIS C AB Non-Reactive Nonreactive ML Non Reactive: < 0.8 Equivocal: >/= 0.8 to < 1.0 Reactive: >/= 1.0 The CDC recommends that a reactive/equivocal HCV antibody result be followed up by the HCV Nucleic Acid Amplification test ([id number]) HEPATITIS B NICOLETTE NOTE RAM HEPATITIS B NICOLETTE HEP B SURF AG Non-Reactive Nonreactive ML HIV - [facility] NOTE RAM HIV - WC HIV Non-Reactive Nonreactive ML L509.8000 NOTE RAM L509.8000 SYPHILIS ABS Non-reactive ML URINE CULTURE NOTE RAM PN N [facility]~[address] [place], [address]~ T AND AB SCREEN GEL NEGATIVE ML CBC W/DIFF, AUT NOTE RAM CBC W/DIFF, AUT WBC 9.2 K/mm3 4.4-11.0 ML CBC W/DIFF, AUT RBC 4.56 M/mm3 4.2-5.4 ML CBC W/DIFF, AUT HGB 13.9 g/dL 12.0-15.0 ML CBC W/DIFF, AUT HCT 41.0 37-47 ML CBC W/DIFF, AUT MCV 89.9 fL 81-99 ML CBC W/DIFF, AUT MCH 30.5 pg 27.0-32.0 ML CBC W/DIFF, AUT MCHC 33.9 g/dL 32-36 ML CBC W/DIFF, AUT RDW CV 12.1 11.6-14.6 ML CBC W/DIFF, AUT RDW SD 39.2 fl 35.1-43.9 ML CBC W/DIFF, AUT PLT 308 K/mm3 150-450 ML CBC W/DIFF, AUT MPV 9.1 fl 6.2-12.0 ML CBC W/DIFF, AUT NEUT% 65.1 47-70 ML CBC W/DIFF, AUT LY% 26.1 19-41 ML CBC W/DIFF, AUT MONO% 7.3 0-10 ML CBC W/DIFF, AUT EO% 0.8 0-5 ML CBC W/DIFF, AUT BASO% 0.4 0-1 ML CBC W/DIFF, AUT IG% 0.300 0.0-0.9 ML IG% - Immature Granulocytes (promyelocytes, myelocytes and metamyelocytes) > 1% indicates that a LEFT SHIFT is Present. CBC W/DIFF, AUT ABSOLUTE NEUT 6.0 X10 3/uL 2.0-7.7 ML CBC W/DIFF, AUT ABSOLUTE LYMPH 2.41 X10 3/uL 0.83-4.51 ML CBC W/DIFF, AUT NUCLEATED RBC 0 0-5 ML PAP I-G W/RFX H NOTE RAM PAP I-G W/RFX H DIAG Comment . LCI NEGATIVE FOR INTRAEPITHELIAL LESION OR MALIGNANCY. PAP I-G W/RFX H ADEQ Comment . LCI Satisfactory for evaluation. Endocervical and/or squamous metaplastic cells (endocervical component) are present. PAP I-G W/RFX H PERFORM Comment . LCI Elpidio [employer] Clerk (ASCP) This liquid based ThinPrep(R) pap test was screened with the use of an image guided system. PAP I-G W/RFX H COMM . . LCI PAP I-G W/RFX H PAPSMR Comment . LCI The Pap smear is a screening test designed to aid in the detection of premalignant and malignant conditions of the uterine cervix. It is not a diagnostic procedure and should not be used as the sole means of detecting cervical cancer. Both false-positive and false-negative reports do occur. PAP I-G W/RFX H HPV RFLX Comment . LCI The HPV DNA reflex criteria were not met with this specimen result therefore, no HPV testing was performed. Performed at: [address], [place] [id number] Programmer Operator [employer]ical Control: Bernadette Hickman MD, Phone: [phone] CHLAMYDIA/GC NA NOTE RAM CHLAMYDIA/GC NA CHLAMY,NUC ACID Negative Negative LCI CHLAMYDIA/GC NA GC BY NUC ACID Negative Negative LCI Performed at: =[address] [place] [id number] Programmer Operator Numerical Control: Bernadette Hickman MD, Phone: [phone] O NEGATIVE *Negative results from patients with symptom onset beyond five days should be treated as presumptive and confirmed by a molecular assay if clinically necessary. Negative results should not be used as the sole basis for treatment or for patient management. SARS-CoV-2 Ag Resp Ql IA.rapid *Positive results do not differentiate between SARS-CoV and SARS-CoV-2. If differentiation of the specific SARS virus is desired an additional sample and an additional order is required. SARS-CoV-2 Ag Resp Ql IA.rapid * This test has not been FDA cleared or approved; the test has been authorized by FDA under an Emergency Use Authorization (EAU) for use by laboratories certified under CLIA that meet the requirements to perform moderate, high, or waived complexity tests. SARS-CoV-2 Ag Resp Ql IA.rapid Normal Reference Range: Negative SARS-CoV-2 (COVID 19) Negative RAPID METHOD Quidel Delilah Analyzer JAIR Group B Beta Streptococcus is not isolated. Below infection level. Mixed Gram Positive Organisms Erhard Count 1000-10,000 O NEGATIVE == ==== Impression /Plan: 36 wks + 0 days intrauterine for cytotec induction for cholestasis of . Preparations in progress for delivery.
--- NOTE | 2022-03-19 08:08 | PCM.PN.OB ---
Subjective Subjective No complaints. Mild cramping with contractions Objective Data Objective Data Vital Signs: Vital Signs Temp Pulse BP Pulse Ox 98.4 F 99 130/65 H 100 03/19/22 07:21 03/19/22 07:19 03/19/22 07:19 03/19/22 07:18 Weight: 264 lb 5.348 oz Body Mass Index (BMI) 42.6 Intake & Output: Intake and Output for Last 24 Hours 03/17/22 03/18/22 03/19/22 23:59 23:59 23:59 Intake Total 400 / 400 Output Total 300 / 300 450 / 450 Balance -300 / -300 -50 / -50 Lab / Micro Data Result Diagrams: 03/18/22 19:20 Labs: Laboratory Results - last 24 hr 03/18/22 19:20: WBC 7.3, RBC 3.22 L, Hgb 9.9 L, Hct 29.7 L, MCV 92.2, MCH 30.7, MCHC 33.3, RDW Std Deviation 42.8, RDW Coeff of Bharath 13.0, Plt Count 227, MPV 10.8, Immature Gran % (Auto) 0.800, Neut % (Auto) 56.5, Lymph % (Auto) 29.3, [place] % (Auto) 8.4, Eos % (Auto) 4.4, Baso % (Auto) 0.6, Absolute Neuts (auto) 4.1, Absolute Lymphs (auto) 2.13, Nucleated RBC % 0.3 03/18/22 19:20: Blood Type O NEGATIVE, Antibody Screen TNP 03/18/22 19:20: Antibody Screen NEGATIVE 03/18/22 23:15: POC Glucose 96 03/19/22 00:21: POC Glucose 94 03/19/22 04:14: POC Glucose 84 Micro: Microbiology 03/18/22 19:20 Nasal Secretion SARS-CoV-2 Antigen (Rapid) - Final Physical Exam Const alert, oriented x3, no apparent distress, average body habitus, healthy appearing and well nourished HEENT normocephalic and moist oral mucous membranes Head and Scalp: atraumatic Face and Sinus: normal facial exam Eyes PERRL Neck full ROM Resp normal respiratory effort, no retractions and no use of accessory muscles Extremity normal to inspection, full ROM and no clubbing, cyanosis or edema Psych mental status grossly normal, affect normal, speech normal and activity/motor behavior normal Assessment & Plan (1) : PLAN: Patient seen and examined. Mild cramping with contractions. Discussed epidural, patient considering. Discussed possible AROM with patient. For Cytotec and continue care management
[2022-03-19 08:26] LABS: Bedside Glucose 82 mg/dL (74-106)
[2022-03-19 12:30] LABS: Bedside Glucose 76 mg/dL (74-106)
[2022-03-19] MEDS: Lactated Ringers 1,000 ML 50 ML IV (13:12)
[2022-03-19] MEDS: LACTATED RINGERS 500 ML 999 ML IV (16:24)
[2022-03-19 16:31] LABS: Bedside Glucose 74 mg/dL (74-106)
[2022-03-19] MEDS: fentaNYL-bupivacaine (epidural) 100 ML BAG EPIDURAL ×2 (17:40→21:53)
--- NOTE | 2022-03-19 18:19 | PCM.PN.OB ---
Subjective Subjective Now comfortable with epidural Objective Data Objective Data Vital Signs: Vital Signs Temp Pulse BP Pulse Ox 98.0 F 113 H 127/62 H 100 03/19/22 17:44 03/19/22 18:16 03/19/22 18:16 03/19/22 18:16 Weight: 264 lb 5.348 oz Body Mass Index (BMI) 42.6 Intake & Output: Intake and Output for Last 24 Hours 03/17/22 03/18/22 03/19/22 23:59 23:59 23:59 Intake Total 1921.67 / 1921.67 Output Total 300 / 300 825 / 825 Balance -300 / -300 1096.67 / 1096.67 Lab / Micro Data Result Diagrams: 03/18/22 19:20 Labs: Laboratory Results - last 24 hr 03/18/22 19:20: WBC 7.3, RBC 3.22 L, Hgb 9.9 L, Hct 29.7 L, MCV 92.2, MCH 30.7, MCHC 33.3, RDW Std Deviation 42.8, RDW Coeff of Bharath 13.0, Plt Count 227, MPV 10.8, Immature Gran % (Auto) 0.800, Neut % (Auto) 56.5, Lymph % (Auto) 29.3, [place] % (Auto) 8.4, Eos % (Auto) 4.4, Baso % (Auto) 0.6, Absolute Neuts (auto) 4.1, Absolute Lymphs (auto) 2.13, Nucleated RBC % 0.3 03/18/22 19:20: Blood Type O NEGATIVE, Antibody Screen TNP 03/18/22 19:20: Antibody Screen NEGATIVE 03/18/22 23:15: POC Glucose 96 03/19/22 00:21: POC Glucose 94 03/19/22 04:14: POC Glucose 84 03/19/22 08:11: POC Glucose 82 03/19/22 12:14: POC Glucose 76 03/19/22 16:22: POC Glucose 74 Micro: Microbiology 03/18/22 19:20 Nasal Secretion SARS-CoV-2 Antigen (Rapid) - Final Physical Exam Const alert, oriented x3, no apparent distress, average body habitus, healthy appearing and well nourished HEENT normocephalic and moist oral mucous membranes Head and Scalp: atraumatic Face and Sinus: normal facial exam Eyes PERRL Neck full ROM Resp normal respiratory effort, no retractions and no use of accessory muscles Narrative: Cervical exam: /-2. AROM clear fluid Extremity normal to inspection, full ROM and no clubbing, cyanosis or edema Psych mental status grossly normal, affect normal, speech normal and activity/motor behavior normal Assessment & Plan (1) : PLAN: Patient seen and examined. Now comfortable with epidural. AROM clear fluid. To transition to Pitocin
[2022-03-19] MEDS: Oxytocin 30 units/NS 500 ml 30 UNITS/500 ML IV.SOLN IV (20:19)
[2022-03-19 20:30] LABS: Bedside Glucose 84 mg/dL (74-106)
[2022-03-19] MEDS: Lactated Ringers 1,000 ML 200 ML IV (20:55)
[2022-03-20] VITALS (47 sets, daily range): BP systolic 92–134; BP diastolic 51–80; PULSE 79–100; TEMP 36.3–37.6; O2SAT 90–100
[2022-03-20 00:36] LABS: Bedside Glucose 86 mg/dL (74-106)
[2022-03-20] MEDS: Lactated Ringers 1,000 ML 200 ML IV ×3 (01:14→11:08)
[2022-03-20] MEDS: fentaNYL-bupivacaine (epidural) 100 ML BAG EPIDURAL ×5 (02:24→20:16)
[2022-03-20 04:26] LABS: Bedside Glucose 84 mg/dL (74-106)
[2022-03-20] MEDS: Acetaminophen 500 MG Tablet PO (06:51)
--- NOTE | 2022-03-20 07:56 | PCM.PN.OB ---
Subjective Subjective Patient with back pain Objective Data Objective Data Vital Signs: Vital Signs Temp Pulse BP Pulse Ox 98.8 F 97 125/77 H 98 03/20/22 07:20 03/20/22 07:20 03/20/22 07:20 03/20/22 07:20 Weight: 264 lb 5.348 oz Body Mass Index (BMI) 42.6 Intake & Output: Intake and Output for Last 24 Hours 03/18/22 03/19/22 03/20/22 23:59 23:59 23:59 Intake Total 2735.08 / 2735.08 1970.73 / 1970.73 Output Total 300 / 300 925 / 925 600 / 600 Balance -300 / -300 1810.08 / 1810.08 1370.73 / 1370.73 Lab / Micro Data Result Diagrams: 03/18/22 19:20 Labs: Laboratory Results - last 24 hr 03/19/22 08:11: POC Glucose 82 03/19/22 12:14: POC Glucose 76 03/19/22 16:22: POC Glucose 74 03/19/22 20:20: POC Glucose 84 03/20/22 00:26: POC Glucose 86 03/20/22 04:21: POC Glucose 84 Micro: Microbiology 03/18/22 19:20 Nasal Secretion SARS-CoV-2 Antigen (Rapid) - Final Physical Exam Const alert, oriented x3, no apparent distress, average body habitus, healthy appearing and well nourished HEENT normocephalic and moist oral mucous membranes Head and Scalp: atraumatic Face and Sinus: normal facial exam Eyes PERRL Neck full ROM Resp normal respiratory effort, no retractions and no use of accessory muscles Extremity normal to inspection, full ROM and no clubbing, cyanosis or edema Psych mental status grossly normal, affect normal, speech normal and activity/motor behavior normal Assessment & Plan (1) : PLAN: Patient seen and examined. Continue titrate Pitocin. Educated patient on progression of labor
[2022-03-20 08:21] LABS: Bedside Glucose 75 mg/dL (74-106)
[2022-03-20] MEDS: 0.9% Saline Lock 10 ML Syringe IV (10:06)
[2022-03-20 13:41] LABS: Bedside Glucose 74 mg/dL (74-106)
[2022-03-20 16:55] LABS: Bedside Glucose 62 mg/dL (74-106)
[2022-03-20] MEDS: Lactated Ringers 1,000 ML 100 ML IV (17:06)
[2022-03-20 18:06] LABS: Bedside Glucose 68 mg/dL (74-106)
[2022-03-20] MEDS: Lactated Ringers 1,000 ML 125 ML IV (18:22)
[2022-03-20 18:36] LABS: Bedside Glucose 95 mg/dL (74-106)
[2022-03-20 19:31] LABS: Bedside Glucose 78 mg/dL (74-106)
--- NOTE | 2022-03-20 20:21 | PCM.PN.OB ---
Subjective Subjective Reports epidural working well but has back pain intermittently. Objective Data Objective Data Vital Signs: Vital Signs Temp Pulse BP Pulse Ox 99.5 F H 89 125/77 H 100 03/20/22 20:01 03/20/22 20:02 03/20/22 19:43 03/20/22 20:02 Weight: 119.9 kg Body Mass Index (BMI) 42.6 Intake & Output: Intake and Output for Last 24 Hours 03/18/22 03/19/22 03/20/22 23:59 23:59 23:59 Intake Total 2735.08 / 2735.08 6754.88 / 6754.88 Output Total 300 / 300 925 / 925 1325 / 1325 Balance -300 / -300 1810.08 / 1810.08 5429.88 / 5429.88 Lab / Micro Data Result Diagrams: 03/18/22 19:20 Labs: Laboratory Results - last 24 hr 03/19/22 20:20: POC Glucose 84 03/20/22 00:26: POC Glucose 86 03/20/22 04:21: POC Glucose 84 03/20/22 08:11: POC Glucose 75 03/20/22 12:11: POC Glucose 74 03/20/22 16:11: POC Glucose 62 L 03/20/22 17:14: POC Glucose 68 L 03/20/22 18:15: POC Glucose 95 03/20/22 19:18: POC Glucose 78 Micro: Microbiology 03/18/22 19:20 Nasal Secretion SARS-CoV-2 Antigen (Rapid) - Final Physical Exam Narrative GEN - NAD< AAO x 3 FHR 135, moderate variability, + accelerations, no decelerations TOCO 2/10 min SVE 5/80/-2, moderate, midposition, cephalic US confirms cephalic presentation with head not yet flexed Assessment & Plan (1) 36 weeks gestation of : PLAN: Cervix not laboring by exam Discussed consideration for 12h with no cervical change for failed induction of labor with review of risks, benefits for section vs. vaginal delivery. Pitocin break planned Will resume pitocin at half with single dose IV propanolol Cat I FHR (2) Cholestasis: (3) Gestational diabetes: QUALIFIERS: Gestational diabetes mellitus control: diet-controlled Trimester: third trimester Qualified Code(s): O24.410 - Gestational diabetes mellitus in , diet controlled
[2022-03-20 20:25] LABS: Bedside Glucose 84 mg/dL (74-106)
[2022-03-20] MEDS: Propranolol 1 MG/ML Ampul 2 MG IV (20:49)
[2022-03-20 21:11] LABS: Bedside Glucose 79 mg/dL (74-106)
[2022-03-20] MEDS: Oxytocin 30 units/NS 500 ml 30 UNITS/500 ML IV.SOLN 16 UNITS IV (22:16)
[2022-03-20 22:21] LABS: Bedside Glucose 83 mg/dL (74-106)
[2022-03-20 23:20] LABS: Bedside Glucose 71 mg/dL (74-106)
[2022-03-21] VITALS (43 sets, daily range): BP systolic 99–137; BP diastolic 55–69; PULSE 78–103; RESP 16–18; TEMP 36.4–37.3; O2SAT 95–100
[2022-03-21 00:30] LABS: Bedside Glucose 93 mg/dL (74-106)
[2022-03-21 01:30] LABS: Bedside Glucose 78 mg/dL (74-106)
[2022-03-21] MEDS: fentaNYL-bupivacaine (epidural) 100 ML BAG EPIDURAL (01:37)
--- NOTE | 2022-03-21 02:49 | PLAC_PTH ---
PATIENT: ZACH CONTE LOC: [facility] U#:[id number] AGE/SX: 26/F ROOM: [facility]016 RE03/18/[address]: Dr. Carlos Mcwilliams MD : 1995 BED: 1 DIS: 03/22/2022 SPEC #: [id number] RECD: 03/21/22 03:58 STATUS: CATALINO REJaniya #: [id number] ADRIAN: 03/21/22 02:[address]: Carlos Mcwilliams DEPT: SURGICAL PATHOLOGY RECD BY: Yazmin Conklin ENTERED: 03/23/22 08:17 SP TYPE: PLACENTA OTHR DR: Pau Hernandez PA-C Tissues: Placenta, NOS Procedures: Surgery Specimen Level V HEADER OPERATION: Vaginal delivery PRE-OP DIAGNOSIS: 36 weeks, cholestasis, prolonged rupture of membranes TISSUE SUBMITTED: Placenta MICROSCOPIC DIAGNOSIS Placenta: Placental disc - third trimester placenta (642 gm). - Focal areas of intraparenchymal hemorrhage (largest measuring 1.5 cm in greatest dimension). Membranes ? moderate acute chorioamnionitis. Umbilical cord - three blood vessels and moderate acute funisitis. SJ:jessica 03/24/2022 MICROSCOPIC DESCRIPTION Slides are reviewed. GROSS DESCRIPTION SPECIMEN: PLACENTA / CLINICAL INFORMATION: A. Weight: 3.185 kg B. Gestational Age: 36 weeks C. Sex: Male PLACENTAL WEIGHT (POST FIXATION): 642 gm PLACENTAL DIMENSIONS: 19 x 16 x 4 cm PLACENTAL SHAPE: Usual ovoid PLACENTAL WEIGHT FOR GESTATIONAL AGE: > 99th percentile MEMBRANES - Present A. Insertion: Marginal B. Site of rupture from edge: 6 cm from edge of placental disc C. Color of membrane: [place] D. Abnormalities: None UMBILICAL CORD - Present A. Color: [place] B. Insertion: Paracentral C. Length: 28 cm D. Diameter: 1.2 cm E. Number of vessels: Three F. Abnormalities: None PLACENTAL DISC - Present A. Color of surface: [place] B. surface abnormalities: None C. Maternal cotyledons: Intact with minimal tears D. Attached retro placental clot: No clot E. Cut surface: Dark red and spongy F. Lesions: Sections reveal three santa, indurated areas, the largest area measuring 1.5 cm in greatest dimension. G. Separate clot: A few blood clots are noted separately in the container and also attached at the membrane in the peripheral portion of the placenta weighing in aggregate 43 gm and measuring in aggregate 9 x 7 x 3 cm. SECTIONS SUBMITTED: 1. Membrane roll 2. Cord, maternal end 3. Cord, end 4. Placental disc, and maternal surfaces, lesion 5. Placental disc, and maternal surfaces, largest lesion 6. Placental disc, and maternal surfaces, lesion SJ:jessica 03/23/2022 TC:3 CPT: 43385
[2022-03-21] MEDS: Oxytocin 30 units/NS 500 ml 30 UNITS/500 ML IV.SOLN 334 UNITS IV (02:54)
--- NOTE | 2022-03-21 03:19 | EX.PCM.OBRPT ---
Assessment & Plan (1) (spontaneous vaginal delivery): (2) Gestational diabetes: QUALIFIERS: Gestational diabetes mellitus control: diet-controlled Trimester: third trimester Qualified Code(s): O24.410 - Gestational diabetes mellitus in , diet controlled (3) Cholestasis: (4) 36 weeks gestation of : Vaginal Delivery Maternal Presentation Maternal Presentation: Medically Indicated Induction Type of Induction: Pitocin, Amniotomy and Cytotec Medical Reason for Induction: - (Cholestasis with GDMA1) Operative Information Date of Procedure: 03/21/22 Pre-Operative Diagnosis: 1. 36 3/7 weeks gestation 2. Intrahepatic cholestasis of 3. Gestational diabetes mellitus Post-Operative Diagnosis: 1. 36 3/7 weeks gestation 2. Intrahepatic cholestasis of 3. Gestational diabetes mellitus Surgery / Procedure Performed: Spontaneous Vaginal Delivery Type of Anesthesia: Epidural Anesthesiologist: Leatha Galloway Drain: Yeager to straight drain Estimated Blood Loss: 300 ml Time of Delivery: 02:49 Findings Description of Procedure: Patient was FD/+3 station with Cat I FHR. She pushed to deliver a male infant in OA with a terminal deceleration x6 minutes. A right mediolateral episiotomy was performed to expedite delivery of the head. The cord was doubly clamped and cut and the infant passed to the awaiting nursery personnel. Cord gases and cord blood specimen were obtained. The placenta delivered spontaneously. Time of Membrane Rupture: 03/19/22 1814h Amniotic Fluid Description: Clear Placental Delivery Description: Spontaneous Placenta Disposition: [facility] Specimen(s) Removed: placenta Cord Vessel Description: 3 Vessels Cord Entanglement: None Cord Gases: ABG and VBG A Gender: Male (1 minute): 7 (5 minute): 9 Delayed Cord Clamping: No Post Vaginal Delivery Medications Given After Delivery: IV Pitocin Episiotomy Description: Right Mediolateral and 1st degree Laceration: None Complication Complications: None
[2022-03-21 03:45] LABS: Bedside Glucose 77 mg/dL (74-106)
[2022-03-21 03:45] LABS: Bedside Glucose 86 mg/dL (74-106)
[2022-03-21] MEDS: Acetaminophen 500 MG Tablet 1000 MG PO (04:14)
[2022-03-21] MEDS: 0.9% Saline Lock 10 ML Syringe IV (05:40)
[2022-03-21] MEDS: Ibuprofen 600 MG Tablet PO (09:26)
[2022-03-21] MEDS: Benzocaine/Lanolin/Aloe Vera 1 SPRAY EACH TOPICAL (09:26)
--- NOTE | 2022-03-21 10:17 | CASEMGMT ---
Social Work Assessment Labor and Delivery Unit Date/Time of referral: 03/21/22, 3:48am Referred by: Dr. Cristiane Reid Date/Time of Intervention: 03/21/22, 9:45 Reason for Referral: hx of anxiety/depression and resources History obtained from: MOB and FOB Household composition: MOB, FOB, and now baby Gordo Parents' guardian status: MOB and FOB are guardians of the baby Medical History: MOB: Gestational diabetes, cholestasis, anxiety, depression Baby: Born 03/21/22 3:10am, Apgars 7 and 9 at 1 and 5 minutes Educational Status: MOB went to college, FOB in college now Financial Status: No concerns, both FOB and MOB work. 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 They have bottles, MOB plans to breast feed. They would have access to formula if needed. Childcare/Caregivers: MOB's mother will watch the baby when she returns to work. Transportation: They have 2 cars Programs/Agencies involved: They already have [place], and [facility] made a referral to [facility]. Children's Services/Legal Issues: None Behavioral Health Issues: Substance abuse: No history as per MOB or FOB for either. No tox screen completed on MOB or baby while here. Mental Health: FOB reports no history. MOB: Reports depression and anxiety, more anxiety than depression. She has taken medication in the past, but not since 2019. She states she has been managing fine without it, she didn't like how the medication made her feel. She has been in counseling in the past, not recently. At present she states her anxiety is more around stress from work. Family/Social Stressors: None Support Systems: Both MOB and FOB's mothers are supportive depression and Anxiety/Shaken Baby/Safe Sleeping/Mental Health resources/New Mom Hotline/[facility] Resources: SW gave information on all of these topics and reviewed it. SW reviewed in particular the warning signs of depression. SW encouraged MOB to speak w/her physician should she have symptoms, and also look into counseling. SW gave list of counseling agencies and pointed out [facility]'s hotline, as well as the New Mom Hotline. Assessment: MOB holding baby, appropriate. Both FOB and MOB spoke w/SW openly, answered all questions. No concerns. Plan: Baby home w/MOB and FOB at discharge. No further social services analyst needs identified at this time. ZARIA Carpio
[2022-03-22 01:25] VITALS: BP 122/67; PULSE 81; RESP 18; TEMP 36.6; O2SAT 98
[2022-03-22 01:26] VITALS: BP 122/67; PULSE 82
[2022-03-22] MEDS: Ibuprofen 600 MG Tablet PO (01:30)
[2022-03-22 04:32] VITALS: BP 123/66; PULSE 84; RESP 16; TEMP 36.5; O2SAT 99
[2022-03-22 04:33] VITALS: BP 123/66; PULSE 83
[2022-03-22 06:01] LABS: Bedside Glucose 88 mg/dL (74-106)
[2022-03-22 06:02] LABS: Hematocrit 22.9 % (37-47); Hemoglobin 7.6 g/dL (12.0-15.0); Mean Corp Hgb Conc 33.2 g/dL (32-36); Mean Corpuscular Hgb 31.3 pg (27.0-32.0); Mean Corpuscular Volume 94.2 fL (81-99); Mean Platelet Vol. 10.8 fl (6.2-12.0); Platelet Count 198 K/mm3 (150-450); RBC Distribution Width CV 13.3 % (11.6-14.6); RBC Distribution Width SD 45.2 fl (35.1-43.9); Red Blood Count 2.43 M/mm3 (4.2-5.4); White Blood Count 14.3 K/mm3 (4.4-11.0)
[2022-03-22 08:40] VITALS: BP 134/74; PULSE 89; RESP 18; TEMP 36.4
--- NOTE | 2022-03-22 09:36 | DS.PCM_ITS ---
Providers Date of Admission: 03/18/22 Primary Care Physician: Pau Hernandez PA-C Reason For Visit: INDUCTION Diagnosis Discharge Diagnosis (1) (spontaneous vaginal delivery): Status: Acute Code(s): O80 - Encounter for full-term uncomplicated delivery (2) Gestational diabetes: Status: Acute Code(s): O24.419 - Gestational diabetes mellitus in , unspecified control Qualifiers: Gestational diabetes mellitus control: diet-controlled Trimester: third trimester Qualified Code(s): O24.410 - Gestational diabetes mellitus in pregna ncy, diet controlled (3) Cholestasis: Status: Acute Code(s): K83.1 - Obstruction of bile duct (4) 36 weeks gestation of : Status: Acute Code(s): Z3A.36 - 36 weeks gestation of Medications at Discharge Home Medications Vitamin 1 tab PO/SL DAILY 02/03/22 ibuprofen 600 mg PO Q8H PRN PRN #30 tab 03/22/22 Hospital Course Operations None Procedures None Summary of Care Provided Hospital Course: 26yo G1 admitted at 36 weeks gestation for induction of labor for history of cholestasis with oligohydramnios. was also complicated by gestational diabetes - diet controlled and anemia. She underwent induction of labor and had a spontaneous vaginal delivery on hospital day #3. Her discharge Hgb was 7.6. She was discharged to home on hospital day #4. Physical Exam Const alert, oriented x3 and no apparent distress Resp normal respiratory effort and normal air movement Cardio regular rate, regular rhythm, S1 normal heart sound and S2 normal heart sound external exam normal Narrative: no evidence of vulvar hematoma, episiotomy repair well approximated Uterus Palpation: uterus fundus firm and other OB fundus nontender Extremity no calf tenderness Neuro oriented x3 Weight / BMI Weight Weight: 119.9 kg Body Mass Index (BMI) 42.6 ABG / Lab / Microbiology Data Result Diagrams: 03/22/22 05:55 Laboratory: Laboratory Results - last 24 hr 03/22/22 05:48: POC Glucose 88 03/22/22 05:55: WBC 14.3 H, RBC 2.43 L, Hgb 7.6 L, Hct 22.9 L, MCV 94.2, MCH 31.3, MCHC 33.2, RDW Std Deviation 45.2 H, RDW Coeff of Bharath 13.3, Plt Count 198, MPV 10.8 Microbiology: Microbiology 03/18/22 19:20 Nasal Secretion SARS-CoV-2 Antigen (Rapid) - Final D/C Instructions Discharge Diet: No restrictions Discharge Activity: Return to Normal Activity May resume sexual activity in: 6 weeks Lifting Restrictions: 10-20 lb Call your doctor if your incision/area has: Increased Pain/ Swelling and Foul Smelling Discharge Call your doctor if you observe: Fever of 101 or Higher, Inability to urinate, Using more than 1 pad per hour, Shortness of breath, Fainting spells, Chest pain, Calf discomfort, Uncontrolled pain and - (Persistent headache or vision changes) Cleanse incision/area with: Soap & Water Please Follow Up With: Max Rojas MD When: 3 weeks for telehealth visit 6 weeks for visit Meaningful Use Info Meaningful Use Diagnoses (Choose all that apply): None applicable Discharge Plan Admission Admit Date/Time: 03/18/22 18:55 Primary Reason for Your Visit: Vaginal delivery Attending Provider: Carlos Mcwilliams Primary Care Provider: Pau Hernandez Discharge Orders/Prescriptions Prescriptions: New ibuprofen 600 mg Tablet 600 mg PO Q8H PRN PRN (Reason: Pain Score 1-3) Qty: 30 RF: 0 Continued Vitamin 1 tab PO/SL DAILY RF: 0 Referrals / Follow Up: Pau Hernandez PA-C [Primary Care Provider] - Disposition Disposition (needs filled in before D/C Order can be placed): Home, Self Care
--- NOTE | 2022-03-22 09:42 | PCM.PN.OB ---
Subjective Subjective No complaints. Perineum is sore, but it is manageable. She ambulates and voids without difficulty. Had a bowel movement. Denies heavy lochia. She feels tired. Denies palpitations, shortness of breath or heart racing. Objective Data Objective Data Vital Signs: Vital Signs Temp Pulse Resp BP Pulse Ox 97.5 F L 89 18 134/74 H 99 03/22/22 08:40 03/22/22 08:40 03/22/22 08:40 03/22/22 08:40 03/22/22 04:32 Oxygen Delivery Method Room Air Weight: 119.9 kg Body Mass Index (BMI) 42.6 Intake & Output: Intake and Output for Last 24 Hours 03/20/22 03/21/22 03/22/22 23:59 23:59 23:59 Intake Total 6796.98 / 6796.98 2271.33 / 2271.33 Output Total 1325 / 1325 1000 / 1000 Balance 5471.98 / 5471.98 1271.33 / 1271.33 Lab / Micro Data Result Diagrams: 03/22/22 05:55 Labs: Laboratory Results - last 24 hr 03/22/22 05:48: POC Glucose 88 03/22/22 05:55: WBC 14.3 H, RBC 2.43 L, Hgb 7.6 L, Hct 22.9 L, MCV 94.2, MCH 31.3, MCHC 33.2, RDW Std Deviation 45.2 H, RDW Coeff of Bharath 13.3, Plt Count 198, MPV 10.8 Micro: Microbiology 03/18/22 19:20 Nasal Secretion SARS-CoV-2 Antigen (Rapid) - Final Physical Exam Const alert, oriented x3 and no apparent distress Resp normal respiratory effort and normal air movement Cardio regular rate, regular rhythm, S1 normal heart sound and S2 normal heart sound external exam normal Narrative: no evidence of vulvar hematoma, episiotomy repair well approximated Uterus Palpation: uterus fundus firm and other OB fundus nontender Extremity no calf tenderness Neuro oriented x3 Assessment & Plan (1) (spontaneous vaginal delivery): PLAN: O neg, O positive - pt post Rhogam Routine care d/c home today
--- NOTE | 2022-03-22 09:48 | PCM.DC ---
Discharge Instructions Diet Discharge Diet: No restrictions Activity Discharge Activity: Return to Normal Activity May resume sexual activity in: 6 weeks Lifting Restrictions: 10-20 lb Dressing / Incision Call your doctor if your incision/area has: Increased Pain/ Swelling and Foul Smelling Discharge Call your doctor if you observe: Fever of 101 or Higher, Inability to urinate, Using more than 1 pad per hour, Shortness of breath, Fainting spells, Chest pain, Calf discomfort, Uncontrolled pain and - (Persistent headache or vision changes) Cleanse incision/area with: Soap & Water Follow Up Care Please Follow Up With: Max Rojas MD When: 3 weeks for telehealth 6 weeks for visit Test Results: Test results from this visit will be discussed in further detail at your follow-up appointment, if applicable. Discharge Plan Admission Admit Date/Time: 03/18/22 18:55 Primary Reason for Your Visit: Vaginal delivery Attending Provider: Carlos Mcwilliams Primary Care Provider: Pau Hernandez Discharge Orders/Prescriptions Prescriptions: New ibuprofen 600 mg Tablet 600 mg PO Q8H PRN PRN (Reason: Pain Score 1-3) Qty: 30 RF: 0 ferrous sulfate 325 mg (65 mg iron) tablet 325 mg PO BID Qty: 60 RF: 0 Continued Vitamin 1 tab PO/SL DAILY RF: 0 Referrals / Follow Up: Pau Hernandez PA-C [Primary Care Provider] - Disposition Disposition (needs filled in before D/C Order can be placed): Home, Self Care
[2022-03-26 10:27] LABS: Pathology Specimen OB SEE PATHOLOGY REPORT
--- NOTE | 2022-03-27 18:12 | NURSING ---
Follow up call completed this evening by this RN. Patient denies any problems, pain, increased bleeding or questions. States she is still having to supplement the baby formula but has worked with and states she knows she can see them again if needed. Informed of baby bistro and social media channels through [facility]. Patient reports being satisfied with her care.
== END 2022-03-22 12:30 | disposition home or self-care (01) | DRG 805 ==
PROVIDERS: Obstetrics & Gynecology; Admitting Provider Obstetrics & Gynecology; PCP Family Medicine; Visit Provider Obstetrics & Gynecology
DX: O76 Abnormality in fetal heart rate and rhythm complicating labor and delivery (principal); Z37.0 Single live birth; O60.14X0 Preterm labor third trimester with preterm delivery third trimester, not applicable or unspecified; K83.1 Obstruction of bile duct; O41.03X0 Oligohydramnios, third trimester, not applicable or unspecified; O26.62 Liver and biliary tract disorders in childbirth; O24.420 Gestational diabetes mellitus in childbirth, diet controlled; O99.02 Anemia complicating childbirth; O61.0 Failed medical induction of labor; Z3A.36 36 weeks gestation of pregnancy
CPT/HCPCS: 59025; 59050; 82962; 85025; 85027; 85461; 86850; 86900; 86901; 87426; 88307; 90384; 99218; J7120; A4216; G0378; J0702; J2790

== ENCOUNTER → 2022-04-24 | Outpatient (CLI) | payer OTHER, MEDICAID, SELFPAY ==
[2022-04-24 10:34] LABS: AST(SGOT) 55 U/L (15-37); Alanine Aminotransfer ALT/SGPT 31 U/L (13-56); Albumin, Serum 3.9 g/dL (3.2-5.0); Alkaline Phosphatase 186 U/L (45-117); Anion Gap 7 (5-15); BUN 16 mg/dL (7-18); BUN/Creat Ratio 15.2 RATIO (10-20); Calcium,Total 9.1 mg/dL (8.5-10.1); Chloride 104 mmol/L (98-107); Creatinine, Serum 1.05 mg/dL (0.55-1.02); EST Glomerular Filtration Rate 68 mL/min (>60); Est Glom Filt Rate - Afr Amer 82 mL/min (>60); Globulin 3.9 g/dL (2.2-4.2); Glucose 98 mg/dL (74-106); Potassium 4.2 mmol/L (3.5-5.1); Protein, Total 7.8 g/dL (6.4-8.2); Sodium Level 138 mmol/L (136-145)
== END | disposition home or self-care (01) ==
LOC: WOBLAB 08:51
PROVIDERS: PCP Family Medicine; Visit Provider Obstetrics & Gynecology
DX: K83.1 Obstruction of bile duct (principal)
CPT/HCPCS: 36415; 80053

== ENCOUNTER → 2022-12-18 | Outpatient (CLI) | payer OTHER, MEDICAID, SELFPAY ==
[2022-12-18 15:02] LABS: Absolute Neutrophil Count 3.5 X10^3/uL (2.0-7.7); Basophil# 0.02 X10^3/uL; Basophil% 0.3 % (0-1); Eosinophil# 0.09 X10^3/uL; Eosinophils% 1.4 % (0-5); Hematocrit 39.8 % (37-47); Hemoglobin 13.2 g/dL (12.0-15.0); Lymphocyte % 33.1 % (19-41); Mean Corp Hgb Conc 33.2 g/dL (32-36); Mean Corpuscular Hgb 28.3 pg (27.0-32.0); Mean Corpuscular Volume 85.4 fL (81-99); Mean Platelet Vol. 9.8 fl (6.2-12.0); Monocyte# 0.61 X10^3/uL; Monocyte% 9.6 % (0-10); NRBC Flagged by Analyzer 0 % (0-5); Neutrophil % 55.3 % (47-70); Platelet Count 264 K/mm3 (150-450); RBC Distribution Width CV 12.3 % (11.6-14.6); Red Blood Count 4.66 M/mm3 (4.2-5.4); White Blood Count 6.3 K/mm3 (4.4-11.0)
[2022-12-18 15:41] LABS: ALB/GLOB Ratio 0.8 RATIO (0.9-2.4); AST(SGOT) 66 U/L (15-37); Alanine Aminotransfer ALT/SGPT 87 U/L (13-56); Albumin, Serum 3.2 g/dL (3.2-5.0); Alkaline Phosphatase 112 U/L (45-117); Anion Gap 9 (5-15); BUN 15 mg/dL (7-18); BUN/Creat Ratio 24.3 RATIO (10-20); Calcium,Total 9.2 mg/dL (8.5-10.1); Chloride 106 mmol/L (98-107); Creatinine, Serum 0.62 mg/dL (0.55-1.02); EST Glomerular Filtration Rate 124 mL/min (>60); Est Glom Filt Rate - Afr Amer 150 mL/min (>60); Globulin 3.9 g/dL (2.2-4.2); Glucose 109 mg/dL (74-106); Potassium 3.8 mmol/L (3.5-5.1); Protein, Total 7.1 g/dL (6.4-8.2); Sodium Level 138 mmol/L (136-145)
[2022-12-18 16:45] LABS: HIV - WCH Non-Reactive (Nonreactive); Hepatitis B Surface Antigen Non-Reactive (Nonreactive); Hepatitis C Antibody Non-Reactive (Nonreactive); Rubella IgG Equiv (Nonreactive); Syphilis Antibodies Non-reactive
[2022-12-21 22:27] LABS: V-Zoster IgG (Immunity) 725 index (Immune >165)
== END | disposition home or self-care (01) ==
LOC: WOBLAB 13:36
PROVIDERS: PCP Family Medicine; Visit Provider Obstetrics & Gynecology
DX: Z34.81 Encounter for supervision of other normal pregnancy, first trimester (principal); R79.89 Other specified abnormal findings of blood chemistry
CPT/HCPCS: 36415; 80053; 85025; 86703; 86762; 86780; 86787; 86803; 87086; 87340

== ENCOUNTER → 2023-01-29 | Outpatient (CLI) | payer OTHER, MEDICAID, SELFPAY ==
[2023-01-29 11:32] LABS: Glucose Challenge Gest 1H 50g 131 mg/dL (70-140)
== END | disposition home or self-care (01) ==
LOC: WOBLAB 10:54
PROVIDERS: PCP Family Medicine; Visit Provider Nurse Practitioner Women's Health
DX: Z34.81 Encounter for supervision of other normal pregnancy, first trimester (principal)
CPT/HCPCS: 36415; 82950

== ENCOUNTER → 2023-05-26 | Outpatient (CLI) | payer OTHER, MEDICAID, SELFPAY ==
[2023-05-26 11:42] LABS: Absolute Neutrophil Count 6.3 X10^3/uL (2.0-7.7); Basophil# 0.04 X10^3/uL; Basophil% 0.5 % (0-1); Eosinophil# 0.09 X10^3/uL; Hematocrit 37.1 % (37-47); Lymphocyte % 19.1 % (19-41); Mean Corp Hgb Conc 32.3 g/dL (32-36); Mean Corpuscular Hgb 28.6 pg (27.0-32.0); Mean Corpuscular Volume 88.3 fL (81-99); Mean Platelet Vol. 10.2 fl (6.2-12.0); Monocyte# 0.71 X10^3/uL; NRBC Flagged by Analyzer 0 % (0-5); Neutrophil % 70.9 % (47-70); Platelet Count 225 K/mm3 (150-450); RBC Distribution Width CV 12.3 % (11.6-14.6); RBC Distribution Width SD 39.1 fl (35.1-43.9); White Blood Count 8.9 K/mm3 (4.4-11.0)
[2023-05-26 11:44] LABS: Glucose Challenge Gest 1H 50g 109 mg/dL (70-140)
[2023-05-26 12:07] LABS: Syphilis Antibodies Non-reactive
== END | disposition home or self-care (01) ==
PROVIDERS: PCP Family Medicine; Visit Provider Obstetrics & Gynecology
DX: Z34.82 Encounter for supervision of other normal pregnancy, second trimester (principal)
CPT/HCPCS: 36415; 82950; 85025; 86780; 86850

== ENCOUNTER → 2023-06-09 | Outpatient (CLI) | payer OTHER, MEDICAID, SELFPAY | END | disposition home or self-care (01) | PROVIDERS: PCP Family Medicine; Visit Provider Obstetrics & Gynecology | DX: Z34.83 Encounter for supervision of other normal pregnancy, third trimester (principal) | CPT/HCPCS: 36415; 86850 ==

== ENCOUNTER 2023-07-26 14:45 | Observation (INO) | payer OTHER, MEDICAID, SELFPAY ==
[2023-07-26 15:18] VITALS: BP 129/79; PULSE 105; BMI 37.1
[2023-07-26 15:26] VITALS: PULSE 94; O2SAT 99
[2023-07-26] MEDS: Lactated Ringers 1,000 ML 50 ML IV (15:55)
--- NOTE | 2023-07-26 16:17 | PCM.HP.OB ---
HPI - General General Date of Admission: 07/26/23 HPI Narrative ZACH OCAMPO, is a 27 F who presents at 38w2 with elevated BP in office of 152/80 with mild headache. No visual changes or RUQ abdominal pain. Maternal Data Information MARGO Calculator Estimated Delivery Date Method Current WG Current Estimate 08/07/23 Manual 38w 2d PFSH PFSH Medical History (Updated 07/26/23 @ 16:38 by Lucretia Main CNM) Anxiety Depression Gestational diabetes Gestational HTN Home Medications Vitamin 1 tab PO/SL DAILY 02/03/22 [History Last Taken 03/18/22 14:00] ferrous sulfate 325 mg (65 mg iron) tablet 325 mg PO BID #60 tabs 03/22/22 [Rx Last Taken Unknown] ibuprofen 600 mg tablet 600 mg PO Q8H PRN PRN Pain Score 1-3 #30 tabs 03/22/22 [Rx Last Taken Unknown] Allergy/AdvReac Type Severity Reaction Status Date / Time No Known Allergies Allergy Verified 03/18/22 19:32 Surgical History (Updated 07/26/23 @ 16:04 by Stefany Christensen) History of gynecologic surgery History of surgery Social History Smoking Status: Former smoker History Elective abortions Hx Para 1 Spontaneous abortions Hx # Term Pregnancies Ectopic pregnancies Hx # Pregnancies Multiple births # of living children ROS Constitutional Constitutional: Reports systems reviewed and no addt'l complaints, except as documented; Denies headache(s) Eyes Eyes: Denies acute decrease in peripheral vision, blurry vision or change in vision ENT HEENT: Reports systems reviewed and no addt'l complaints, except as documented Cardiovascular Cardiovascular: Denies chest pain or dizziness Respiratory/Chest Respiratory/Chest: Denies cough, dyspnea, dyspnea on exertion, shortness of breath at rest or shortness of breath with exertion Gastrointestinal Gastrointestinal: Denies abdominal pain, diarrhea, nausea or vomiting Genitourinary Genitourinary: Denies abdominal discomfort Musculoskeletal Musculoskeletal: Denies limited range of motion Integumentary Integumentary: Reports systems reviewed and no addt'l complaints, except as documented Neurologic Neurologic: Reports systems reviewed and no addt'l complaints, except as documented Psychiatric Psychiatric: Reports systems reviewed and no addt'l complaints, except as documented Endocrine Endocrinology: Reports systems reviewed and no addt'l complaints, except as documented Hematologic/Lymphatic Hematologic/Lymphatic: Reports systems reviewed and no addt'l complaints, except as documented Allergic/Immunologic Allergic/Immunologic: Reports systems reviewed and no addt'l complaints, except as documented Vital Signs Vital Signs Vital Signs: 07/26/23 15:18 07/26/23 15:18 07/26/23 15:26 Pulse Rate 105 H 94 Blood Pressure 129/79 H BP Systolic 129 BP Diastolic 79 Pulse Ox 07/26/23 15:26 Pulse Rate Blood Pressure BP Systolic BP Diastolic Pulse Ox 99 Weight Weight: 230 lb 6 oz Body Mass Index (BMI) 37.1 Physical Exam Const alert and oriented x3 General Appearance: cooperative Orientation / Consciousness: awake, oriented to person, oriented to place and oriented to time Exam Limitations: no limitations HEENT normocephalic Head and Scalp: normal to inspection, normocephalic and atraumatic Face and Sinus: normal facial exam Eyes General Eye: normal appearance of both eyes Neck full ROM Chest Chest: symmetrical chest wall rise Resp normal respiratory effort and normal air movement Auscultation: clear to auscultation bilaterally Cardio regular rate, regular rhythm, S1 normal heart sound, S2 normal heart sound, no murmurs, no rub, no gallops and no clicks GI normal to inspection, nondistended, normoactive bowel sounds and non-tender appearance of the vagina normal Bladder / Kidney Exam: no CVA tenderness Manual OB Exam: estimated gestational size appropriate, presentation cephalic, dilated finger tip, effaced 20% and station -2 Back/Spine normal ROM Extremity normal to inspection and full ROM Skin no rashes or lesions noted Neuro oriented x3, CN's II-XII intact bilaterally and moves all extremities Sensorium / Orientation: awake, alert and oriented to person Motor Exam: clonus absent Deep Tendon Reflexes: Rt Patellar (L4): 2+ and Lt Patellar (L4): 2+ Labs Labs Labs: Blood Type O NEGATIVE Antibody Screen NEGATIVE Hct 37.1 % (37-47) Hgb 12.0 g/dL (12.0-15.0) Syphilis Total Ab Non-reactive VZV IgG Antibody 725 index (Immune >165) Rubella IgG Antibody Equiv (Nonreactive) Hep Bs Antigen Non-Reactive (Nonreactive) Hepatitis C Antibody Non-Reactive (Nonreactive) Chlamydia DNA (KATERYNA) Negative (Negative) N.gonorrhoeae DNA (KATERYNA) Negative (Negative) HIV 1&2 Antibody Non-Reactive (Nonreactive) Glucose 1 Hr 50 gm 109 mg/dL (70-140) Gest Glucose Tolerance MG/DL Rhogam given: Yes Miscellaneous Test Assessment & Plan (1) Encounter for induction of labor: (2) History of gestational diabetes: (3) Obesity: (4) History of cholestasis during : PLAN: Plan 1) Admit to labor and delivery 2) Continuous EFM 3) cytotec with pitocin after progresses. Declines real at this time but may consider later. 4) Epidural for pain management 5) Preeclampsia labs 6) collaborative physician and sent patient over for delivery.
[2023-07-26 16:37] VITALS: BP 124/73; PULSE 92
[2023-07-26 16:58] LABS: Absolute Neutrophil Count 7.4 X10^3/uL (2.0-7.7); Basophil# 0.03 X10^3/uL; Basophil% 0.3 % (0-1); Eosinophil# 0.08 X10^3/uL; Eosinophils% 0.8 % (0-5); Hematocrit 36.3 % (37-47); Hemoglobin 11.7 g/dL (12.0-15.0); Mean Corp Hgb Conc 32.2 g/dL (32-36); Mean Corpuscular Hgb 27.7 pg (27.0-32.0); Mean Corpuscular Volume 85.8 fL (81-99); Mean Platelet Vol. 10.9 fl (6.2-12.0); Monocyte# 0.79 X10^3/uL; Monocyte% 7.9 % (0-10); NRBC Flagged by Analyzer 0 % (0-5); Neutrophil # 7.36 X10^3/uL (2.7-7.7); Neutrophil % 73.5 % (47-70); Platelet Count 194 K/mm3 (150-450); RBC Distribution Width CV 13.3 % (11.6-14.6); RBC Distribution Width SD 39.8 fl (35.1-43.9); Red Blood Count 4.23 M/mm3 (4.2-5.4)
[2023-07-26] MEDS: Acetaminophen 500 MG Tablet PO (17:31)
[2023-07-26 17:48] LABS: AST(SGOT) 43 U/L (15-37); Alanine Aminotransfer ALT/SGPT 20 U/L (13-56); Creatinine, Serum 0.67 mg/dL (0.55-1.02); EST Glomerular Filtration Rate 113 mL/min (>60); Est Glom Filt Rate - Afr Amer 136 mL/min (>60); Estimated Creatinine Clearance 119.12 ml/min; Uric Acid 6.4 mg/dL (2.6-6.0)
[2023-07-26 17:51] LABS: Protein, Urine (Random) 9.7 mg/dL (<11.9); Protein:Creat Ratio 90 mg/g CRE (0-200)
[2023-07-26 17:54] LABS: LDH 204 U/L (84-246)
[2023-07-26 18:07] LABS: Syphilis Antibodies Non-reactive
[2023-07-26 18:28] VITALS: BP 132/77; PULSE 88
== END 2023-07-26 18:55 | disposition home or self-care (01) ==
PROVIDERS: Admitting Provider Advanced Practice Midwife; PCP Family Medicine; Visit Provider Advanced Practice Midwife
DX: O26.893 Other specified pregnancy related conditions, third trimester (principal); R03.0 Elevated blood-pressure reading, without diagnosis of hypertension; R51.9 Headache, unspecified; O99.213 Obesity complicating pregnancy, third trimester; E66.9 Obesity, unspecified; Z87.891 Personal history of nicotine dependence; Z86.32 Personal history of gestational diabetes; Z3A.38 38 weeks gestation of pregnancy
CPT/HCPCS: 59025; 59050; 82565; 82570; 83615; 84156; 84450; 84460; 84550; 85025; 86780; 86850; 86900; 86901; 99221; J7120; G0378

== ENCOUNTER 2023-08-03 06:45 | Inpatient (IN) | payer OTHER, MEDICAID, SELFPAY ==
[2023-08-03] VITALS (50 sets, daily range): BP systolic 90–139; BP diastolic 46–84; PULSE 79–226; TEMP 36.6–37.1; O2SAT 80–100; BMI 39.2
[2023-08-03] MEDS: Lactated Ringers 1,000 ML 50 ML IV ×2 (08:30→21:51)
--- NOTE | 2023-08-03 08:44 | PCM.HP.OB ---
HPI - General General Date of Admission: 08/03/23 Date of Service: 08/03/23 HPI Narrative ZACH CONTE, is a 27 F who presents for induction. Maternal Data Information MARGO Calculator Estimated Delivery Date Method Current WG Current Estimate 08/07/23 Manual 39w 3d PFSH PFS Medical History (Updated 08/03/23 @ 08:[address] Renzo Santana MD) Anxiety Depression Gestational diabetes History of cholestasis during History of gestational diabetes Postural orthostatic tachycardia syndrome [POTS] Home Medications Vitamin 1 tab PO/SL DAILY 02/03/22 [History Last Taken 07/24/23] ferrous sulfate 325 mg (65 mg iron) tablet 325 mg PO BID anemia #60 tabs 03/22/22 [Rx Last Taken Unknown] ibuprofen 600 mg tablet 600 mg PO Q8H PRN PRN Pain Score 1-3 #30 tabs 03/22/22 [Rx Last Taken Unknown] aspirin 81 mg tablet,delayed release 81 mg PO DAILY propholatic for HTN 07/26/23 [History Last Taken 07/24/23] Allergy/AdvReac Type Severity Reaction Status Date / Time No Known Allergies Allergy Verified 07/26/23 16:55 Surgical History (Updated 07/26/23 @ 16:04 by Stefany Christensen) History of gynecologic surgery History of surgery Social History Smoking Status: Former smoker History Elective abortions Hx Para 1 Spontaneous abortions Hx # Term Pregnancies Ectopic pregnancies Hx # Pregnancies Multiple births # of living children NST FHR Rate Baby A Baseline: 140 Variability:: Moderate Accelerations:: 15 x 15 Decelerations:: None Uterine Activity:: quiet Vital Signs Vital Signs Vital Signs: 08/03/23 07:24 08/03/23 07:24 Pulse Rate 90 Blood Pressure 114/60 BP Systolic 114 BP Diastolic 60 Weight Weight: 235 lb 8 oz Body Mass Index (BMI) 39.2 Physical Exam Const alert, oriented x3 and no apparent distress Chest inspection of chest normal GI soft to palpation, non-tender and non-distended external exam normal Narrative: cvx - 1/60/-3 Labs Labs Labs: Blood Type O NEGATIVE Antibody Screen NEGATIVE Hct 36.3 % (37-47) L Hgb 11.7 g/dL (12.0-15.0) L Syphilis Total Ab Non-reactive VZV IgG Antibody 725 index (Immune >165) Rubella IgG Antibody Equiv (Nonreactive) Hep Bs Antigen Non-Reactive (Nonreactive) Hepatitis C Antibody Non-Reactive (Nonreactive) Chlamydia DNA (KATERYNA) Negative (Negative) N.gonorrhoeae DNA (KATERYNA) Negative (Negative) HIV 1&2 Antibody Non-Reactive (Nonreactive) Glucose 1 Hr 50 gm 109 mg/dL (70-140) Gest Glucose Tolerance MG/DL Rhogam given: Yes Miscellaneous Test Assessment & Plan (1) Obesity: QUALIFIERS: Obesity classification: unspecified obesity classification Obesity type: unspecified obesity type Serious obesity comorbidity presence: unspecified whether serious comorbidity present Qualified Code(s): E66.9 - Obesity, unspecified COMMENT: @ 39&5 (2) Encounter for induction of labor: PLAN: Plan Admit to L&D Induction - intracervical real placed. Start pitocin. GBS negative EFW - less than 4500g & patient with adequate pelvis Pain - epidural as desired
[2023-08-03] MEDS: 0.9% Normal Saline Single 100 ML IV.SOLN. INTRA-UTER (08:45)
[2023-08-03 08:52] LABS: Absolute Lymphocyte Count 2.37 X10^3/uL (0.83-4.51); Absolute Neutrophil Count 5.2 X10^3/uL (2.0-7.7); Basophil# 0.02 X10^3/uL; Basophil% 0.2 % (0-1); Eosinophil# 0.15 X10^3/uL; Eosinophils% 1.8 % (0-5); Hematocrit 32.8 % (37-47); Hemoglobin 10.8 g/dL (12.0-15.0); Lymphocyte # 2.37 X10^3/ul (0.83-4.51); Mean Corp Hgb Conc 32.9 g/dL (32-36); Mean Corpuscular Hgb 28.1 pg (27.0-32.0); Mean Corpuscular Volume 85.2 fL (81-99); Mean Platelet Vol. 10.7 fl (6.2-12.0); Monocyte# 0.71 X10^3/uL; Monocyte% 8.4 % (0-10); NRBC Flagged by Analyzer 0 % (0-5); Neutrophil # 5.15 X10^3/uL (2.7-7.7); Neutrophil % 60.9 % (47-70); Platelet Count 203 K/mm3 (150-450); RBC Distribution Width CV 13.4 % (11.6-14.6); RBC Distribution Width SD 41.1 fl (35.1-43.9); Red Blood Count 3.85 M/mm3 (4.2-5.4); White Blood Count 8.5 K/mm3 (4.4-11.0)
[2023-08-03] MEDS: Oxytocin 15 Units/NS 250ml 15 UNITS/250 ML IV.SOLN 2 UNITS IV (09:16)
[2023-08-03 09:42] LABS: Syphilis Antibodies Non-reactive
[2023-08-03] MEDS: LACTATED RINGERS 500 ML 999 ML IV ×2 (12:53→23:49)
[2023-08-03] MEDS: fentaNYL-bupivacaine (epidural) 100 ML BAG EPIDURAL ×3 (13:45→23:07)
[2023-08-03] MEDS: CHLORHEXIDINE GLUC 2% CLOTH 1 EACH TOWELETTE TOPICAL (15:51)
[2023-08-03] MEDS: Acetaminophen 500 MG Tablet PO (17:21)
[2023-08-03] MEDS: DiphenhydrAMINE 50 MG/ML Syringe IV (19:12)
[2023-08-04] VITALS (65 sets, daily range): BP systolic 88–131; BP diastolic 50–71; PULSE 52–107; RESP 15–18; TEMP 36.1–37.7; O2SAT 80–100
[2023-08-04] MEDS: LACTATED RINGERS 500 ML 999 ML IV (00:43)
[2023-08-04] MEDS: Ondansetron 4 MG/2 ML Vial IV (02:20)
[2023-08-04] MEDS: CHLORHEXIDINE GLUC 2% CLOTH 1 EACH TOWELETTE TOPICAL (03:09)
[2023-08-04] MEDS: fentaNYL-bupivacaine (epidural) 100 ML BAG EPIDURAL (03:43)
[2023-08-04] MEDS: Lactated Ringers 1,000 ML 200 ML IV (03:48)
[2023-08-04] MEDS: Oxytocin 15 Units/NS 250ml 15 UNITS/250 ML IV.SOLN 16 UNITS IV (04:14)
--- NOTE | 2023-08-04 05:41 | EX.PCM.OBRPT ---
Maternal Data Information MARGO Calculator Estimated Delivery Date Method Current WG Current Estimate 08/07/23 Manual 39w 4d Vaginal Delivery Maternal Presentation Maternal Presentation: Elective Induction Type of Induction: Pitocin and Yeager Bulb Operative Information Date of Procedure: 08/04/23 Pre-Operative Diagnosis: Maternal obesity Post-Operative Diagnosis: Same Surgery / Procedure Performed: Spontaneous Vaginal Delivery Type of Anesthesia: Epidural Estimated Blood Loss: 300ml Findings Description of Procedure: Patient prepped & draped when C/C/+2. She pushed well to deliver the head. head gently guided to allow delivery of anterior and posterior shoulders. No excess traction placed on head. Body delivered and 3VC clamped & cut in delayed fashion. Placenta delivered with gentle traction and good uterine tone obtained. Presentation: ASYA Amniotic Membrane Rupture Type: Spontaneous Amniotic Fluid Description: Clear Placental Delivery Description: Expressed Placenta Disposition: [facility] Specimen(s) Removed: Placenta Cord Vessel Description: 3 Vessels Cord Entanglement: Around neck x 1, loose Nuchal Cord Compression: Without compression Infant A Gender: Female (1 minute): 8 (5 minute): 9 Delayed Cord Clamping: Yes Post Vaginal Delivery Medications Given After Delivery: IV Pitocin Episiotomy Description: None Laceration: None Complication Complications: None
[2023-08-04] MEDS: Oxytocin 15 Units/NS 250ml 15 UNITS/250 ML IV.SOLN 83 UNITS IV (06:05)
[2023-08-04] MEDS: Ibuprofen 600 MG Tablet PO ×2 (06:18→15:58)
[2023-08-04] MEDS: Acetaminophen 500 MG Tablet 1000 MG PO ×2 (06:19→15:58)
[2023-08-05 03:47] VITALS: BP 119/63; PULSE 91; RESP 15; TEMP 36.4; O2SAT 97
[2023-08-05 07:50] VITALS: BP 107/60; PULSE 84; RESP 16; TEMP 36.7
--- NOTE | 2023-08-05 10:10 | PCM.PN.OB ---
Subjective Subjective Pt is doing well this morning. She offers no complaints. Desires discharge today. Ambulating and voiding without difficulty. Pain is well controlled. Lochia is normal. She is breast-feeding without complaints. Objective Data Objective Data Vital Signs: Vital Signs Temp Pulse Resp BP Pulse Ox O2 Del Method 98.0 F 84 16 107/60 97 Room Air 08/05/23 07:50 08/05/23 07:50 08/05/23 07:50 08/05/23 07:50 08/05/23 03:47 08/05/23 07:50 Oxygen Delivery Method Room Air Weight: 235 lb 8 oz Body Mass Index (BMI) 39.2 Intake & Output: Intake and Output for Last 24 Hours 08/03/23 08/04/23 08/05/23 23:59 23:59 23:59 Intake Total 1405.71 / 1405.71 2817.66 / 2817.66 Output Total 1999 / 1999 700 / 700 Balance -594.29 / -594.29 2117.66 / 2117.66 Lab / Micro Data 08/03/23 08:25 Physical Exam Const alert and no apparent distress General Appearance: comfortable Assessment & Plan (1) state: PLAN: Pt is day 1 from a vaginal delivery. Meeting milestones for discharge. She desires to go home today and discharge instructions were reviewed. She will follow-up in the office. (2) Vaginal delivery:
--- NOTE | 2023-08-05 10:15 | DCINST_ITS ---
Discharge Instructions Diet Discharge Diet: No restrictions Activity Discharge Activity: May Shower May resume sexual activity in: 6 weeks (nothing in vagina and no soaking in water) Ice area for (Minutes): 15 Weight Bearing Status: Weight bearing as tolerated Lifting Restrictions: nothing heavier than baby Dressing / Incision Call your doctor if you observe: Fever of 101 or Higher, Coldness, Increased Pain, Numbness or Tingling, Change in Color, Inability to urinate, Inability to have a bowel movement, Using more than 1 pad per hour, Shortness of breath, Dizziness, Fainting spells, Swelling in the ankles, Chest pain, Increased palpitations (irregular heartbeat), Calf discomfort and Uncontrolled pain Cleanse incision/area with: Soap & Water Follow Up Care When: 1-2 weeks early 6 week exam Test Results: Test results from this visit will be discussed in further detail at your follow- up appointment, if applicable. Discharge Plan Admission Admit Date/Time: 08/03/23 06:45 Primary Reason for Your Visit: delivery Attending Provider: Renzo Santana Primary Care Provider: Pau Hernandez Instructions Patient Instructions: After a Vaginal Discharge Orders/Prescriptions Prescriptions: Continued Vitamin 1 tab PO/SL DAILY ibuprofen 600 mg Tablet 600 mg PO Q8H PRN PRN (Reason: Pain Score 1-3) Qty: 30 0RF Discontinued ferrous sulfate 325 mg (65 mg iron) tablet 325 mg PO BID Qty: 60 0RF aspirin 81 mg tablet,delayed release (DR/EC) 81 mg PO DAILY Patient Comments: TAKE 1 TABLET BY MOUTH ONCE DAILY Referrals / Follow Up: Pau Hernandez PA-C [Primary Care Provider] - Disposition Disposition (needs filled in before D/C Order can be placed): Home, Self Care
[2023-08-05 12:03] VITALS: BP 128/65; PULSE 91; RESP 16; TEMP 36.7
--- NOTE | 2023-08-05 14:06 | CASEMGMT ---
Social Work Assessment Labor and Delivery Unit Patient Address:[address] [place] [address] [address], [place] [address] Phone number: [phone] Date of Referral: 08/04/23 Time of Referral:? [phone] Referred By: Belen Santana Date of Intervention: ?08/05/23? Time of Intervention:? 1200 Reason for Referral:? hx of anxiety and depression, ADHD Sw completed chart review and acknowledges social work consult due to maternal mental health history. Sw presented to bedside and introduced self to mother of baby (MOB- Pao) and father of baby (FOAgustin- Dave). Sw explained reason for sw involvement/ consult and completed psychosocial assessment. Sw assessed for needs or concerns and provided information and list of community resources. History obtained from: medical records, MOB and FOB. Household composition: Parents report that currently they are residing with paternal grandparents with their first child (Gordo, : 03/21/22) and now baby. Patient's parent/guardian status:?Parents report they have been together since 2019 and have been for two years. [place] baby is second child together. Parents report they went to the same high school and were in the [employer] together. 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 No concerns of domestic violence or intimate partner violence. ? Medical History: SIENA is 2, para 1- now 2 following delivery of baby. SIENA received routine care with [facility] during . SIENA delivered baby at 39 weeks gestation via vaginal delivery. Baby girl, named Hanna Lobo was born weighing 7lb 9oz and her apgars were 8 and 9 at one and five minutes of life respectfully. Educational Status:? Both parents graduated from high school, MOB obtained her associates degree, EMMA has not college education. Parents deny any concerns with reading, learning or comprehension. Financial Status: Both parents are gainfully employed outside of the home. MOB works at [employer] and EMMA works at [employer]. FOB states that he is able to take the week off. SIENA reports that she will be off of work for 6 weeks for maternity leave. Infant Supplies: Parents report they have obtained all necessary baby supplies including: car seat, safe sleep space, clothes, diapers, wipes and feeding supplies. Childcare/Caregiver(s):?While on maternity leave MOB will be the primary caregiver to baby. When both parents have returned to work both sets of grandmas will help provide childcare. Transportation:?? Both parents drive and have reliable means of transportation. No transportation barriers at this time. Programs/Agencies Involved: ?SIENA reports that she is connected to [facility], denies linkage to any other financial community supports. ?? Children Services/Legal Issues:??? No history of Children Services involvement, no issues or concerns warranting a referral at this time. Behavioral Health Issues: ??Mental Health History:?FOB states that he has undiagnosed ADHD. MOB states that she has been diagnosed with anxiety, depression and ADHD. MOB reports that she has not been on any psychotropic medications since 2017. MOB states that she is not connected to any mental health supports at this time. SIENA denies experincing any baby blues or depression after the of her son in 2021.?? Substance Use History: Both parents deny substance use history prior to or during . ?? Family History:??No family history of mental health diagnoses or substance use reported. ??? Drug Screens: NO urine screens observed in chart review. ?? Family/Social Stressors:? parents deny Support Systems: [place] states that both grandma's are supportive along with other family members. Depression/Shaken Baby/Safe Sleeping:? Terry educated parents on signs and symptoms of baby blues and depression. Terry provided SIENA with list of community resources for her to review along with literature regarding mental health following delivery of . Parents expressed understanding. Terry educated parents on shaken baby prevention and ABCs of safe sleep. Parents expressed understanding. ASSESSMENT:?MOB and baby currently admitted following labor and delivery of . MOB has natural supports in place with family members. Both parents are employed and have help with childcare. MOB with mental health history, acknowledges understanding of baby blues and mental health history, signs and symptoms to be on the look out for during her journey. Parents were talkative and respectful towards social work during assessment. Receptive to education and support. PLAN:? MOB and baby to be discharged when medically readay. ?No other services requested or indicated. Ashley Paige, BASE REMOVER, FILLING CARRIER
== END 2023-08-05 12:50 | disposition home or self-care (01) | DRG 806 ==
PROVIDERS: Admitting Provider Obstetrics & Gynecology; PCP Family Medicine; Referring Provider Obstetrics & Gynecology; Visit Provider Obstetrics & Gynecology
DX: O13.4 Gestational [pregnancy-induced] hypertension without significant proteinuria, complicating childbirth (principal); Z37.0 Single live birth; O99.354 Diseases of the nervous system complicating childbirth; G90.A Postural orthostatic tachycardia syndrome [POTS]; O99.214 Obesity complicating childbirth; O69.81X0 Labor and delivery complicated by cord around neck, without compression, not applicable or unspecified; Z3A.39 39 weeks gestation of pregnancy; Z79.82 Long term (current) use of aspirin; Z87.59 Personal history of other complications of pregnancy, childbirth and the puerperium; Z87.891 Personal history of nicotine dependence
CPT/HCPCS: 59025; 59050; 85025; 85461; 86780; 86850; 86900; 86901; 99221; J7120; G0378; J2405; J2790